=== PATIENT | female | born 1980 | race Caucasian/White ===

== ENCOUNTER 2020-10-17 14:31 | Emergency (ER) | payer MEDICARE, MEDICAID, SELFPAY ==
--- NOTE | 2020-10-17 14:39 | ED_ITS ---
HPI - General Adult General: Chief complaint: General Medical Stated complaint: PEG TUBE Time Seen by Provider: 10/17/20 14:46 History of Present Illness: HPI narrative: 40 yo [place] was displaced. Patient previously had a prolonged seizure resulting in requiring complete [facility] [facility] level of care earlier today where PEG tube was displaced. She will respond to painful stimuli but does not provide any verbal response to questions. She has been at this state for several years now. Review of Systems General: Reports: ROS unobtainable due to medical condition and ROS unobtainable due to mental status PFSH ED PFSH: Medical History (Updated 10/17/20 @ 16:05 by Scottie Khan DO) Cerebral palsy HTN (hypertension) Hypothyroidism, unspecified Physical Exam HENMT: COMMON NORMALS: normocephalic, atraumatic and hearing grossly normal bilaterally HEAD & SCALP: normocephalic and atraumatic Neck/C-Spine: COMMON NORMALS: no JVD Resp: COMMON NORMALS: normal respiratory effort, No retractions, No use of accessory muscles and clear to auscultation bilaterally AUSCULTATION: clear to auscultation bilaterally Cardio: COMMON NORMALS: no JVD, regular rate, regular rhythm and No murmurs present (Cardio) RATE: regular rate RHYTHM: regular rhythm GI: COMMON NORMALS: Soft to palpation and No hepatosplenomegaly present AUSCULTATION: Yes normoactive bowel sounds PALPATION: Yes Soft to palpation, No Tenderness to palpation present (GI), No Guarding due to palpation present (GI) and Yes No hepatosplenomegaly present Extremity: COMMON NORMALS: normal to inspection, capillary refill normal, no clubbing, cyanosis or edema, no calf tenderness and no pedal edema Skin: COMMON NORMALS: no rashes or lesions noted GENERAL SKIN EXAM: no rashes or lesions noted Course Vital Signs: Vital signs: Vital Signs Temperature 97.6 F 10/17/20 14:45 Pulse Rate 79 10/17/20 14:45 Respiratory Rate 19 H 10/17/20 14:45 Blood Pressure 102/67 10/17/20 14:45 Pulse Oximetry 99 10/17/20 14:45 MDM - General Adult MDM Narrative: Medical decision making narrative: Initially on arrival a Ceron tube placed to maintain patency. Then replaced by PEG tube patient be discharged back to the [place] [facility] placement confirmed by Gastrografin and KUB. PEG tube found Ceron tube removed and PEG tube replaced bulb inflated confirm placement with Gastrografin injection and KUB. Discharge back to the [place] [facility] routine PEG tube cares Discharge Plan Discharge Patient Disposition: Home Clinical Impression: Status post insertion of percutaneous endoscopic gastrostomy (PEG) tube, Cerebral palsy Condition: Stable Prescriptions: No Action levothyroxine 75 mcg capsule 75 mcg PO DAILY@05 RF: 0 zonisamide [Zonegran] 100 mg capsule 200 mg PO DAILY@08 RF: 0 Eldertonic 0.5-0.6-7-0.7 mg elixir 30 ml PO DAILY@08 RF: 0 gabapentin 300 mg capsule 300 mg PO BID@, RF: 0 baclofen 10 mg tablet 10 mg PO BID@, RF: 0 venlafaxine 75 mg tablet 75 mg PO DAILY@08 RF: 0 desmopressin 0.2 mg tablet 0.2 mg PO BID@, RF: 0 ondansetron HCl 4 mg tablet 4 mg PO QID PRN (Reason: Nausea And Vomiting) RF: 0 magnesium hydroxide [Milk of Magnesia] 400 mg/5 mL suspension 30 ml PO DAILY PRN (Reason: Constipation) RF: 0 bisacodyl [Dulcolax (bisacodyl)] 10 mg suppository 10 mg TN DAILY PRN (Reason: Constipation) RF: 0 levetiracetam 100 mg/mL solution 1,000 mg PO BID@,20 RF: 0 Tylenol 650mg 20 ml PO QID PRN (Reason: pain/fever) RF: 0 Fleet Enema 19-7 gram/118 mL Enema 118 ml TN DAILY PRN (Reason: Constipation) RF: 0 valproic acid 500 mg Capsule,Delayed Release(Dr/Ec) 500 mg PO TID@,, RF: 0 Biofreeze 0.2-3.5 % Gel See Rx Instructions .ROUTE .COMPLEX RF: 0 Isosource 1.5 Asaf 0.07 gram-1.5 kcal/mL Liquid See Rx Instructions .ROUTE .COMPLEX RF: 0 Discharge Orders: Discharge ED (Routine); Ordered 10/17/20 Ordered By: Scottie Khan Referrals: Michael Stokes MD [Primary Care Provider] - Discharge Diet: Usual diet Activity Restrictions/Additional Instructions: Routine PEG tube cares Coding Level of Care Code ED Preparation Department Supervisor for Chg Fwd Exam Detailed
[2020-10-17 14:45] VITALS: BP 102/67; PULSE 79; RESP 19; TEMP 36.4; O2SAT 99
--- NOTE | 2020-10-17 15:55 | XRR_ITS ---
PROCEDURE INFORMATION: Exam: XR Abdomen, 1 View Exam date and time: 10/17/2020 4:14 PM Age: 40 years old Clinical indication: Device placement; Gi device; Peg tube; Additional info: Peg tube placement - instill 10 ml gastrograggin in peg xra TECHNIQUE: Imaging protocol: XR of the abdomen. Views: Frontal supine view of the abdomen. 1 View. Total images: 1 COMPARISON: CR XR KUB [id number] 10/06/2017 10:52 AM FINDINGS: Tubes, catheters and devices: Gastrografin injected through the PEG tube within the distal gastric lumen and proximal duodenum. No visible extravasation. Gastrointestinal tract: Heavy fecal residue consistent with constipation. Nonobstructive bowel pattern. No visible evidence of significant adynamic or reactive ileus. Bones/joints: Unremarkable. XR/XR KUB portable [id number] IMPRESSION: PEG tube in place with contrast within the distal gastric lumen and proximal duodenum.
[2020-10-17] MEDS: diatrizoate meglumine 120 mL Sol 10 ML XX (16:14)
[2020-10-17 16:19] VITALS: BP 101/68; PULSE 76; RESP 18; O2SAT 99
[2020-10-17 17:14] VITALS: BP 94/63; PULSE 65; RESP 17; O2SAT 100
== END 2020-10-17 17:32 | disposition home or self-care (01) ==
PROVIDERS: Emergency Provider Family Medicine; PCP Internal Medicine
DX: Z93.1 Gastrostomy status (principal); G80.9 Cerebral palsy, unspecified; I10 Essential (primary) hypertension
CPT/HCPCS: 12345; 74018; 99281; 99283; Q9963

== ENCOUNTER 2021-06-26 21:56 | Emergency (ER) | payer MEDICARE, MEDICAID, SELFPAY ==
--- NOTE | 2021-06-26 21:57 | ED_ITS ---
HPI - General Adult General: Chief complaint: Abdominal Pain Stated complaint: FEEDING TUBE ISSUE Time Seen by Provider: 06/26/21 21:57 History of Present Illness: HPI narrative: 40-year-old female brought in from [facility] and has a dislodgment of a feeding tube. They were unable to replace it at the intermediate. Patient appears well. Patient appears no acute distress. Review of Systems General: Reports: 10 or more systems reviewed and unremarkable except in HPI and below GI: Reports: other (G-tube displacement) [facility] ED PFSH: Medical History (Updated 06/26/21 @ 22:43 by EDOUARD Maravilla) Cerebral palsy HTN (hypertension) Hypothyroidism, unspecified Physical Exam Const: COMMON NORMALS: no acute distress GENERAL APPEARANCE: cooperative HENMT: COMMON NORMALS: normocephalic and Normal external nose present HEAD & SCALP: normal to inspection and normocephalic NOSE: Normal external nose present Eye: GENERAL EYE: appearance normal, both eyes and all related structures Neck/C-Spine: COMMON NORMALS: full ROM Lymph: LYMPHATIC: no lymphadenopathy noted Chest: COMMONS NORMALS: normal inspection of the chest Resp: COMMON NORMALS: normal respiratory effort EFFORT & INSPECTION: Yes able to speak in complete sentences Cardio: COMMON NORMALS: regular rate and regular rhythm RATE: regular rate RHYTHM: regular rhythm GI: COMMON NORMALS: Soft to palpation PALPATION: Yes Soft to palpation and Yes Other GI palpation findings present OTHER: Feeding tube site appears healthy without any signs of redness or induration surrounding the tissue. Back/Pelvis: COMMON NORMALS: thoracic and lumbar spine normal to inspection Extremity: COMMON NORMALS: normal to inspection Neuro: COMMON NORMALS: moves all extremities Psych: COMMON NORMALS: mental status grossly normal and cooperative Skin: COMMON NORMALS: no rashes or lesions noted GENERAL SKIN EXAM: no rashes or lesions noted Procedures Feeding Tube Replacement Type of Tube: gastrostomy Insertion Site Prior to Procedure: clean Tube Used for Reinsertion: Ceron [place]ankan Tube Size (F): 14 Balloon size (mL): 10 Verification of Placement: auscultation Tube Secured by: tape/dressing Patient Tolerated Procedure: well Additional Comments: Attempted to 18 Sri Lankan G-tube was unable to place. 14 [place]ankan Ceron was then placed. Course Vital Signs: Vital signs: Vital Signs Temperature 98.8 F 09/27/21 21:59 Pulse Rate 91 06/26/21 22:48 Respiratory Rate 16 06/26/21 22:48 Blood Pressure 111/71 06/26/21 21:59 Pulse Oximetry 93 06/26/21 22:48 MDM - General Adult MDM Narrative: Medical decision making narrative: Patient was sent to the ER for concerns of inability to place G-tube. On exam patient appears well. Abdomen soft nontender. Skin is warm and dry. G-tube site was pink without any signs of significant redness or induration. Was unable to insert a 18 Sri [place]ankan gastric tube due to large size. Placed a 14 [place]ankan Ceron catheter without any difficulties. Patient will need to follow-up with surgeon for replacement of G- tube. Patient was returned to the intermediate. Discharge Plan Discharge Patient Disposition: Home Clinical Impression: Gastrostomy tube dysfunction Condition: Stable Prescriptions: No Action zonisamide [Zonegran] 100 mg capsule 200 mg PO DAILY@08 RF: 0 Eldertonic 0.5-0.6-7-0.7 mg elixir 30 ml PO DAILY@08 RF: 0 gabapentin 300 mg capsule 300 mg PO BID@, RF: 0 baclofen 10 mg tablet 10 mg PO BID@, RF: 0 venlafaxine 75 mg tablet 75 mg PO DAILY@08 RF: 0 desmopressin 0.2 mg tablet 0.2 mg PO BID@, RF: 0 ondansetron HCl 4 mg tablet 4 mg PO QID PRN (Reason: Nausea And Vomiting) RF: 0 magnesium hydroxide [Milk of Magnesia] 400 mg/5 mL suspension 30 ml PO DAILY PRN (Reason: Constipation) RF: 0 bisacodyl [Dulcolax (bisacodyl)] 10 mg suppository 10 mg ME DAILY PRN (Reason: Constipation) RF: 0 levothyroxine 100 mcg/mL solution 50 mcg PO DAILY Qty: 30 RF: 0 levetiracetam 100 mg/mL solution 1,000 mg PO BID@, RF: 0 Tylenol 650mg 20 ml PO QID PRN (Reason: pain/fever) RF: 0 Fleet Enema 19-7 gram/118 mL Enema 118 ml ME DAILY PRN (Reason: Constipation) RF: 0 valproic acid 500 mg Capsule,Delayed Release(Dr/Ec) 500 mg PO TID@08,14,20 RF: 0 Biofreeze 0.2-3.5 % Gel See Rx Instructions .ROUTE .COMPLEX RF: 0 Isosource 1.5 Asaf 0.07 gram-1.5 kcal/mL Liquid See Rx Instructions .ROUTE .COMPLEX RF: 0 Discharge Orders: Discharge ED (Routine); Ordered 06/26/21 Ordered By: Saul Fonseca Referrals: Michael Stokes MD [Primary Care Provider] - Discharge Diet: Usual diet Discharge Activity: Increase activity as tolerated Patient Instructions: Opioid Safety Activity Restrictions/Additional Instructions: Follow-up with surgeon for replacement of G-tube. Use Ceron catheter for feedings until G-tube may be replaced. Return to the ER as needed for signs of infection such as high fever or new concerns. Coding Level of Care Code ED Drug Safety Associate for Irene Fwevan Exam Comprehensive
[2021-06-26 21:59] VITALS: BP 111/71; PULSE 89; RESP 16; TEMP 37.1; O2SAT 93
[2021-06-26 22:48] VITALS: PULSE 91; RESP 16; O2SAT 93
== END 2021-06-27 00:10 | disposition home or self-care (01) ==
LOC: ER 06-27 03:52
PROVIDERS: Emergency Provider Nurse Practitioner Family; PCP Internal Medicine
DX: K94.29 Other complications of gastrostomy (principal); G80.9 Cerebral palsy, unspecified; I10 Essential (primary) hypertension
CPT/HCPCS: 43762; 99283

== ENCOUNTER → 2021-07-05 08:01 | Day surgery (SDC) | payer MEDICARE, MEDICAID, SELFPAY ==
--- NOTE | 2021-07-05 08:24 | PM.ACPR ---
Procedure/Consent Time out: Time Out Performed: Yes Consent: Consent for Procedure: Consent obtained from other (indicate) (POA) Procedure Narrative: Preoperative diagnosis: Cerebral palsy with 14 Marshallese Ceron catheter Postop diagnosis: Same Procedure: Exchange of gastrostomy tube to 18 Marshallese tube Anesthesia: None Surgeon: Michael Description of procedure: After consent was obtained the balloon on the existing 14 Marshallese Ceron catheter was deflated and removed intact. An 18 Marshallese gastrostomy tube was introduced with some pressure since the gastrostomy was smaller, there was drainage of gastric contents. The balloon was inflated with 7 cc of saline and dressings were applied. Patient tolerated the procedure well. Acute Procedures Epistaxis Control: Time out performed: Yes
[2021-07-05 08:25] VITALS: BP 86/64; PULSE 80; RESP 18; TEMP 36.2; O2SAT 97
== END ==
PROVIDERS: PCP Internal Medicine; Visit Provider Surgery
DX: Z46.89 Encounter for fitting and adjustment of other specified devices (principal); G80.9 Cerebral palsy, unspecified
CPT/HCPCS: 43762; B4087

== ENCOUNTER 2021-09-11 18:54 | Outpatient (CLI) | payer MEDICARE, MEDICAID, SELFPAY ==
[2021-09-11 19:07] LABS: Hematocrit 42.6 % (37.0-47.0); Mean Corpuscular HGB Conc 30.5 g/dL (30.0-36.0); Mean Corpuscular Hemoglobin 32.3 pg (28.0-34.0); Mean Corpuscular Volume 105.7 fl (81-99); Platelet Count 92 10^3/cmm (130-400); Red Blood Count 4.03 10^6/uL (4.1-5.3); Red Cell Distribution Width 14.6 % (12.1-15.1); White Blood Count 6.2 10^3/uL (4.0-10.0)
[2021-09-11 19:49] LABS: Absolute Neutrophil 3.8 10^3/cmm (1.4-6.5); Absolute Segmented Neutrophil 3.5 10/cmm (1.6-7.1); Band Neutrophils Absolute 0.3 10^3/cmm (0.0-1.2); Lymphocytes 32 %; Lymphocytes Absolute 2.2 10^3/cmm (1.2-3.4); Monocytes Absolute 0.2 10^3/cmm (0.1-0.6); Platelet Estimate Decreased (Normal); Segmented Neutrophils 56 %; Total Cells Counted 100 (0-100)
[2021-09-11 19:49] LABS: Alanine Aminotransferase 26 U/L (0-33); Albumin Level 3.2 g/dL (3.5-5.2); Alkaline Phosphatase 94 IU/L (35-105); Anion Gap 12.4 (5-19); Aspartate Amino Transferase 24 U/L (0-32); Blood Urea Nitrogen 53 mg/dL (6-20); Calcium 8.5 mg/dL (8.5-10.5); Carbon Dioxide 29 mmol/L (22-29); Chloride 115 mmol/L (98-107); Globulin 3.1 g/dL (1.3-4.6); Glomerular Filtration Rate 136.6 mL/min (90-130); Glucose 52 mg/dL (65-115); Osmolality Calculated 324 mOsm/kg (285-295); Potassium 5.4 mmol/L (3.5-5.1); Sodium 151 mmol/L (136-145); Total Bilirubin 0.2 mg/dL (0.15-1.2); Total Protein 6.3 g/dL (6.6-8.7)
[2021-09-11 19:50] LABS: Macrocytosis 1+
== END 2021-09-11 18:55 | disposition home or self-care (01) ==
PROVIDERS: PCP Internal Medicine; Visit Provider Internal Medicine
DX: R41.82 Altered mental status, unspecified (principal)
CPT/HCPCS: 80053; 85007; 85027

== ENCOUNTER 2021-09-16 15:34 | Inpatient (IN) | payer MEDICARE, MEDICAID, SELFPAY ==
[2021-09-16] VITALS (11 sets, daily range): BP systolic 71–120; BP diastolic 52–71; PULSE 92–108; RESP 15–25; TEMP 36.8–37.3; O2SAT 93–100; BMI 19.5
--- NOTE | 2021-09-16 16:01 | XRR_ITS ---
PROCEDURE INFORMATION: Exam: XR Chest Exam date and time: 09/16/2021 4:01 PM Age: 41 years old Clinical indication: Cough and dyspnea; Additional info: Dyspnea/cough TECHNIQUE: Imaging protocol: XR of the chest. Views: 1 view. COMPARISON: CR Chest 1 [place] [id number] 12/27/2018 2:53 PM FINDINGS: Lungs: Unremarkable. No consolidation. Pleural spaces: Unremarkable. No pleural effusion. No pneumothorax. Heart/Mediastinum: Unremarkable. No cardiomegaly. Bones/joints: Unremarkable. XR/XR chest 1V portable [id number] IMPRESSION: No acute findings.
--- NOTE | 2021-09-16 16:03 | W.ED.FEVER ---
Documented by User: Scottie Khan DO 09/20/21 08:43 HPI - Fever General: Chief Complaint: Fever Stated Complaint: LETHARGIC/ HEADACHE Time Seen by Provider: 09/16/21 15:38 History of Present Illness: HPI Narrative: 41-year-old female resident of a care home. She is previously had electrical disability due to cerebral palsy then had episode of status epilepticus that left her with significant disability over the course of a couple of years she was able to regain some verbal function but she is lost all ability to maintain her own ADLs. Patient was brought to the ER today with complaint of fever. On arrival here she is responsive she answers a few simple questions. She states she has a headache does not give any other symptoms at this time. She is mildly tender with palpation of her abdomen. MD elicited complaint: malaise Pertinent past history: other (Significant functional loss due to status epilepticus.) Onset (ago): unknown Exacerbating factors: nothing Relieving factors: nothing Associated symptoms: Reports abdominal pain and chills; Deny flank pain, chest pain, confusion, cough, diarrhea, dysuria, extremity pain, headache(s), myalgias, nasal congestion, nausea, night sweats, rash, rhinorrhea, short of breath, sinus pain, stiffness, sore throat or vomiting Treatments prior to arrival fever: none Review of Systems Const: Reports: chills; Denies: night sweats ENMT: Denies: nasal congestion or sinus pain Card: Denies: chest pain Resp: Denies: dyspnea, productive cough or non-productive cough GI: Reports: abdominal pain; Denies: nausea, vomiting or diarrhea : Denies: flank pain or dysuria Musc: Denies: extremity pain Skin/Breast: Denies: rash or pruritus Neuro: Denies: headache(s) or confusion PFS ED PFSH: Medical History (Updated 09/18/21 @ 13:25 by Kalpana Sultana MD) Cerebral palsy HTN (hypertension) Hypothyroidism, unspecified Physical Exam Const: ORIENTATION/CONSCIOUSNESS: Yes awake HENMT: COMMON NORMALS: atraumatic HEAD & SCALP: atraumatic OTHER: Poor dentition, significant erosion of teeth. Neck/C-Spine: COMMON NORMALS: no JVD Resp: COMMON NORMALS: normal respiratory effort, No retractions, No use of accessory muscles and clear to auscultation bilaterally AUSCULTATION: clear to auscultation bilaterally Cardio: COMMON NORMALS: no JVD, regular rate, regular rhythm and No murmurs present (Cardio) RATE: regular rate RHYTHM: regular rhythm GI: COMMON NORMALS: Soft to palpation and No hepatosplenomegaly present AUSCULTATION: Yes normoactive bowel sounds PALPATION: Yes Soft to palpation, No Tenderness to palpation present (GI), No Guarding due to palpation present (GI) and Yes No hepatosplenomegaly present Extremity: COMMON NORMALS: normal to inspection, capillary refill normal, no clubbing, cyanosis or edema, no calf tenderness and no pedal edema Skin: COMMON NORMALS: no rashes or lesions noted GENERAL SKIN EXAM: no rashes or lesions noted Course Vital Signs: Vital signs: Vital Signs Temperature 98.2 F 09/20/21 07:36 Pulse Rate 69 09/20/21 07:36 Respiratory Rate 16 09/20/21 07:36 Blood Pressure 100/64 09/20/21 07:36 Pulse Oximetry 90 09/20/21 07:36 MDM - Fever MDM Narrative: Medical decision making narrative: Care turned over to Dr. Stark at change of see his note from diagnosis and disposition. Lab Data: Labs: Lab Results 09/16/21 09/16/21 09/16/21 16:30 16:30 16:30 WBC 15.9 10^3/uL H 10 ^3/uL (4.0-10.0) RBC 4.03 10^6/uL L 10 ^6/uL (4.1-5.3) Hgb 13.1 g/dL g/dL (11.5-15.3) Hct 40.0 % % (37.0-47.0) MCV 99.3 fl H fl (81-99) MCH 32.5 pg pg (28.0-34.0) MCHC 32.8 g/dL g/dL (30.0-36.0) RDW 15.0 % % (12.1-15.1) Plt Count 89 10^3/cmm L 10^ 3/cmm (130-400) MPV 11.8 fL H fL (7.4-10.4) Neut % (Auto) 72.0 % % Lymph % (Auto) 12.8 % % Nicholas % (Auto) 13.8 % % Eos % (Auto) 0.3 % % Baso % (Auto) 0.3 % % Neut # (Auto) 11.47 10^3/uL H 1 0^3/uL (1.8-7.7) Lymph # (Auto) 2.0 10^3/uL 10^3/ uL (0.8-4.8) Nicholas # (Auto) 2.2 10^3/uL H 10^ 3/uL (0.2-0.9) Eos # (Auto) 0.0 10^3/uL 10^3/ uL (0.0-0.8) Baso # (Auto) 0.1 10^3/uL 10^3/ uL (0.0-0.1) Nucleated RBC % (a uto) 0.3 % % Nucleated RBCs # 0.0 /100WBC /100W BC Specimen Type Arterial Sample Site Radial, right ABG pH 7.46 H (7.35-7.45) ABG pCO2 35.6 mmHg mmHg (35-45) ABG pO2 77.3 mmHg L mmHg (80.0-100.0) ABG HCO3 25.0 mmol/L mmol/ L (22-26) ABG O2 Saturation 97.0 ABG Base Excess 1.4 mmol/L mmol/L (-2.0-2.0) Melchor Test Pos A-a O2 Gradient 3.7 mmHg L mmHg (5-10) Hematocrit 40.0 % % (37-47) Hgb O2 Saturation 94.6 % L % (95-100) Carboxyhemoglobin 1.2 %THgb %THgb (0.4-20.1) Methemoglobin 1.2 % % (0.4-1.5) Total Hemoglobin 13.1 g/dL g/dL (12-16) Sodium 149 mmol/L H mmol /L 151.0 mmol/L H mm ol/L (136-145) (131-143) Potassium 5.0 mmol/L mmol/L 4.8 mmol/L mmol/L (3.5-5.1) (3.5-5.0) Glucose 85 mg/dL mg/dL 90.0 mg/dL mg/dL (65-115) (70-115) Ionized Calcium 1.2 mmol/L mmol/L (1.1-1.4) O2 Delivery Device None FiO2 21.0 % % Registrar Nurses' Registry ID Rieri Chloride 113 mmol/L H mmol /L (98-107) Carbon Dioxide 21 mmol/L L mmol/ L (22-29) Anion Gap 20.0 H (5-19) BUN 34 mg/dL H mg/dL (6-20) Creatinine 1.0 mg/dL H mg/dL (0.5-0.9) GFR Calculation 61.4 mL/min L mL/ min (90-130) Calculated Osmolal ity 315 mOsm/kg H mOs m/kg (285-295) Lactic Acid Calcium 8.3 mg/dL L mg/dL (8.5-10.5) Total Bilirubin 0.6 mg/dL mg/dL (0.15-1.2) AST 32 U/L U/L (0-32) ALT 23 U/L U/L (0-33) Alkaline Phosphata se 108 IU/L H IU/L (35-105) Total Protein 6.6 g/dL g/dL (6.6-8.7) Albumin 2.8 g/dL L g/dL (3.5-5.2) Globulin 3.8 g/dL g/dL (1.3-4.6) Urine Color Urine Appearance Urine pH Ur Specific Gravit y Urine Protein Urine Glucose (UA) Urine Ketones Urine Blood Urine Nitrate Urine Bilirubin Prot Sulfosalicyli c Acd Urine Urobilinogen Ur Leukocyte Radha ase Urine RBC Urine WBC Ur Squamous Epith Cells Amorphous Sediment Urine Bacteria 09/16/21 09/16/21 16:30 18:07 WBC RBC Hgb Hct MCV MCH MCHC RDW Plt Count MPV Neut % (Auto) Lymph % (Auto) Nicholas % (Auto) Eos % (Auto) Baso % (Auto) Neut # (Auto) Lymph # (Auto) Nicholas # (Auto) Eos # (Auto) Baso # (Auto) Nucleated RBC % (a uto) Nucleated RBCs # Specimen Type Sample Site ABG pH ABG pCO2 ABG pO2 ABG HCO3 ABG O2 Saturation ABG Base Excess Melchor Test A-a O2 Gradient Hematocrit Hgb O2 Saturation Carboxyhemoglobin Methemoglobin Total Hemoglobin Sodium Potassium Glucose Ionized Calcium O2 Delivery Device FiO2 Registrar Nurses' Registry ID Chloride Carbon Dioxide Anion Gap BUN Creatinine GFR Calculation Calculated Osmolal ity Lactic Acid 1.1 mmol/L mmol/L (0.5-2.2) Calcium Total Bilirubin AST ALT Alkaline Phosphata se Total Protein Albumin Globulin Urine Color Yellow (Yellow) Urine Appearance Sl cloudy A (CLEAR) Urine pH 9 H (5-7) Ur Specific Gravit y 1.015 (1.005-1.030) Urine Protein 2+ H (Negative) Urine Glucose (UA) Norm (Normal) Urine Ketones Negative (Negative) Urine Blood 3+ H (Negative) Urine Nitrate Negative (Negative) Urine Bilirubin Neg (Negative) Prot Sulfosalicyli c Acd Positive (Negative) Urine Urobilinogen Norm mg/dL mg/dL (Negative) Ur Leukocyte Radha ase 2+ H (Negative) Urine RBC >100 /hpf H /hpf (0-2) Urine WBC Too numerous to c nt /hpf H /hpf (0-5) Ur Squamous Epith Cells 0-4 /hpf H /hpf (0-5) Amorphous Sediment Not Reportable Urine Bacteria 4+ /hpf H /hpf (NONE) Discharge Plan Discharge Admit Provider: Mandy Means Coding Level of Care Code ED Telephone Lineman for Chg Fwd Exam Comprehensive Documented by User: Tae Stark DO 09/16/21 21:11 HPI - Fever General: Chief Complaint: Fever Stated Complaint: LETHARGIC/ HEADACHE Time Seen by Provider: 09/16/21 15:38 PFSH ED PFSH: Medical History (Updated 09/18/21 @ 13:25 by Kalpana Sultana MD) Cerebral palsy HTN (hypertension) Hypothyroidism, unspecified Course Consultations: Consultation #1: vicky Time: 20:42 Vital Signs: Vital signs: Vital Signs Temperature 98.2 F 09/20/21 07:36 Pulse Rate 69 09/20/21 07:36 Respiratory Rate 16 09/20/21 07:36 Blood Pressure 100/64 09/20/21 07:36 Pulse Oximetry 90 09/20/21 07:36 MDM - Fever MDM Narrative: Medical decision making narrative: 41-year-old female checked out to me at shift change by Dr. Khan. This lady has had a fever, and evidence of urinary tract infection. White blood cell count is 16. CT shows evidence of urinary tract infection possibly pyelonephritis. BUN is 34 creatinine is 1. Initially, she was hypotensive, she has had 3 L of fluid with a MAP of 65 now. Heart rates 99. Sats are 97% we will place her on low-dose Levophed for pressure support Lab Data: Labs: Lab Results 09/16/21 09/16/21 09/16/21 16:30 16:30 16:30 WBC 15.9 10^3/uL H 10 ^3/uL (4.0-10.0) RBC 4.03 10^6/uL L 10 ^6/uL (4.1-5.3) Hgb 13.1 g/dL g/dL (11.5-15.3) Hct 40.0 % % (37.0-47.0) MCV 99.3 fl H fl (81-99) MCH 32.5 pg pg (28.0-34.0) MCHC 32.8 g/dL g/dL (30.0-36.0) RDW 15.0 % % (12.1-15.1) Plt Count 89 10^3/cmm L 10^ 3/cmm (130-400) MPV 11.8 fL H fL (7.4-10.4) Neut % (Auto) 72.0 % % Lymph % (Auto) 12.8 % % Nicholas % (Auto) 13.8 % % Eos % (Auto) 0.3 % % Baso % (Auto) 0.3 % % Neut # (Auto) 11.47 10^3/uL H 1 0^3/uL (1.8-7.7) Lymph # (Auto) 2.0 10^3/uL 10^3/ uL (0.8-4.8) Nicholas # (Auto) 2.2 10^3/uL H 10^ 3/uL (0.2-0.9) Eos # (Auto) 0.0 10^3/uL 10^3/ uL (0.0-0.8) Baso # (Auto) 0.1 10^3/uL 10^3/ uL (0.0-0.1) Nucleated RBC % (a uto) 0.3 % % Nucleated RBCs # 0.0 /100WBC /100W BC Specimen Type Arterial Sample Site Radial, right ABG pH 7.46 H (7.35-7.45) ABG pCO2 35.6 mmHg mmHg (35-45) ABG pO2 77.3 mmHg L mmHg (80.0-100.0) ABG HCO3 25.0 mmol/L mmol/ L (22-26) ABG O2 Saturation 97.0 ABG Base Excess 1.4 mmol/L mmol/L (-2.0-2.0) Melchor Test Pos A-a O2 Gradient 3.7 mmHg L mmHg (5-10) Hematocrit 40.0 % % (37-47) Hgb O2 Saturation 94.6 % L % (95-100) Carboxyhemoglobin 1.2 %THgb %THgb (0.4-20.1) Methemoglobin 1.2 % % (0.4-1.5) Total Hemoglobin 13.1 g/dL g/dL (12-16) Sodium 149 mmol/L H mmol /L 151.0 mmol/L H mm ol/L (136-145) (131-143) Potassium 5.0 mmol/L mmol/L 4.8 mmol/L mmol/L (3.5-5.1) (3.5-5.0) Glucose 85 mg/dL mg/dL 90.0 mg/dL mg/dL (65-115) (70-115) Ionized Calcium 1.2 mmol/L mmol/L (1.1-1.4) O2 Delivery Device None FiO2 21.0 % % Registrar Nurses' Registry ID Rieri Chloride 113 mmol/L H mmol /L (98-107) Carbon Dioxide 21 mmol/L L mmol/ L (22-29) Anion Gap 20.0 H (5-19) BUN 34 mg/dL H mg/dL (6-20) Creatinine 1.0 mg/dL H mg/dL (0.5-0.9) GFR Calculation 61.4 mL/min L mL/ min (90-130) Calculated Osmolal ity 315 mOsm/kg H mOs m/kg (285-295) Lactic Acid Calcium 8.3 mg/dL L mg/dL (8.5-10.5) Total Bilirubin 0.6 mg/dL mg/dL (0.15-1.2) AST 32 U/L U/L (0-32) ALT 23 U/L U/L (0-33) Alkaline Phosphata se 108 IU/L H IU/L (35-105) Total Protein 6.6 g/dL g/dL (6.6-8.7) Albumin 2.8 g/dL L g/dL (3.5-5.2) Globulin 3.8 g/dL g/dL (1.3-4.6) Urine Color Urine Appearance Urine pH Ur Specific Gravit y Urine Protein Urine Glucose (UA) Urine Ketones Urine Blood Urine Nitrate Urine Bilirubin Prot Sulfosalicyli c Acd Urine Urobilinogen Ur Leukocyte Radha ase Urine RBC Urine WBC Ur Squamous Epith Cells Amorphous Sediment Urine Bacteria 09/16/21 09/16/21 16:30 18:07 WBC RBC Hgb Hct MCV MCH MCHC RDW Plt Count MPV Neut % (Auto) Lymph % (Auto) Nicholas % (Auto) Eos % (Auto) Baso % (Auto) Neut # (Auto) Lymph # (Auto) Nicholas # (Auto) Eos # (Auto) Baso # (Auto) Nucleated RBC % (a uto) Nucleated RBCs # Specimen Type Sample Site ABG pH ABG pCO2 ABG pO2 ABG HCO3 ABG O2 Saturation ABG Base Excess Melchor Test A-a O2 Gradient Hematocrit Hgb O2 Saturation Carboxyhemoglobin Methemoglobin Total Hemoglobin Sodium Potassium Glucose Ionized Calcium O2 Delivery Device FiO2 Registrar Nurses' Registry ID Chloride Carbon Dioxide Anion Gap BUN Creatinine GFR Calculation Calculated Osmolal ity Lactic Acid 1.1 mmol/L mmol/L (0.5-2.2) Calcium Total Bilirubin AST ALT Alkaline Phosphata se Total Protein Albumin Globulin Urine Color Yellow (Yellow) Urine Appearance Sl cloudy A (CLEAR) Urine pH 9 H (5-7) Ur Specific Gravit y 1.015 (1.005-1.030) Urine Protein 2+ H (Negative) Urine Glucose (UA) Norm (Normal) Urine Ketones Negative (Negative) Urine Blood 3+ H (Negative) Urine Nitrate Negative (Negative) Urine Bilirubin Neg (Negative) Prot Sulfosalicyli c Acd Positive (Negative) Urine Urobilinogen Norm mg/dL mg/dL (Negative) Ur Leukocyte Radha ase 2+ H (Negative) Urine RBC >100 /hpf H /hpf (0-2) Urine WBC Too numerous to c nt /hpf H /hpf (0-5) Ur Squamous Epith Cells 0-4 /hpf H /hpf (0-5) Amorphous Sediment Not Reportable Urine Bacteria 4+ /hpf H /hpf (NONE) Discharge Plan Discharge Admit Provider: Mandy Means Coding Level of Care Code ED Telephone Lineman for Chg Fwd Exam Comprehensive
--- NOTE | 2021-09-16 16:07 | CTR_ITS ---
PROCEDURE INFORMATION: Exam: CT Abdomen And Pelvis With Contrast Exam date and time: 09/16/2021 4:07 PM Age: 41 years old Clinical indication: Abdominal pain; Generalized; Prior surgery; Additional info: Abd pain TECHNIQUE: Imaging protocol: Computed tomography of the abdomen and pelvis with contrast. Radiation optimization: All CT scans at this facility use at least one of these dose optimization techniques: automated exposure control; mA and/or kV adjustment per patient size (includes targeted exams where dose is matched to clinical indication); or iterative reconstruction. Contrast material: OMNI 300; Contrast volume: 75 ml; Contrast route: INTRAVENOUS (IV); COMPARISON: CT abdomen pelvis wo con [id number] 10/06/2015 4:04 AM RADIATION DOSE METRICS: Total DLP (mGy-cm): 3096.91 FINDINGS: Tubes, catheters and devices: Percutaneous gastric tube seen with tip in the stomach. Liver: Normal. No mass. Gallbladder and bile ducts: Cholelithiasis. Pancreas: Normal. No ductal dilation. Spleen: Normal. No splenomegaly. Adrenal glands: Normal. No mass. Kidneys and ureters: Several left kidney renal pelvis and calyceal stones without hydronephrosis. Mild right hydronephrosis and hydroureter with enhancement of the ureteral wall suggestive of underlying infection. Stomach and bowel: Constipation. Appendix: No evidence of appendicitis. Intraperitoneal space: Unremarkable. No free air. No significant fluid collection. Vasculature: Unremarkable. No abdominal aortic aneurysm. Lymph nodes: Unremarkable. No enlarged lymph nodes. Urinary bladder: Diffuse urinary bladder wall thickening suggestive of a cystitis. Reproductive: Unremarkable as visualized. Bones/joints: Unremarkable. No acute fracture. Soft tissues: Unremarkable. CT/CT abdomen pelvis w con* [id number] IMPRESSION: 1. Diffuse urinary bladder wall thickening suggestive of a cystitis. 2. Several left kidney renal pelvis and calyceal stones without hydronephrosis. 3. Mild right hydronephrosis and hydroureter with enhancement of the ureteral wall suggestive of underlying infection. 4. Percutaneous gastric tube seen with tip in the stomach. 5. Cholelithiasis. 6. Constipation.
[2021-09-16 16:37] LABS: ABG PCO2 35.6 mmHg (35-45); ABG PH Result 7.46 (7.35-7.45); Alveolar-Arterial Oxygen Gradi 3.7 mmHg (5-10); Base Excess ABG 1.4 mmol/L (-2.0-2.0); Blood Gas Allen Test Pos; Blood Gas Sample Site Radial, right; Blood Gas Sample Type Arterial; Carboxyhemoglobin 1.2 %THgb (0.4-20.1); HGB O2 Sat 94.6 % (95-100); Ionized Calcium Level - ABG 1.2 mmol/L (1.1-1.4); Methemoglobin 1.2 % (0.4-1.5); PO2 ABG 77.3 mmHg (80.0-100.0); Potassium Level - ABG 4.8 mmol/L (3.5-5.0); Total Hemoglobin 13.1 g/dL (12-16)
[2021-09-16 16:40] LABS: Basophils # 0.1 10^3/uL (0.0-0.1); Basophils % 0.3 %; Eosinophils % 0.3 %; Hemoglobin 13.1 g/dL (11.5-15.3); Lymphocytes % 12.8 %; Mean Corpuscular HGB Conc 32.8 g/dL (30.0-36.0); Mean Corpuscular Hemoglobin 32.5 pg (28.0-34.0); Mean Corpuscular Volume 99.3 fl (81-99); Mean Platelet Volume 11.8 fL (7.4-10.4); Monocytes # 2.2 10^3/uL (0.2-0.9); Monocytes % 13.8 %; Neutrophils # 11.47 10^3/uL (1.8-7.7); Nucleated Red Blood Cells % 0.3 %; Platelet Count 89 10^3/cmm (130-400); Red Blood Count 4.03 10^6/uL (4.1-5.3); White Blood Count 15.9 10^3/uL (4.0-10.0)
[2021-09-16 16:58] LABS: Alanine Aminotransferase 23 U/L (0-33); Albumin Level 2.8 g/dL (3.5-5.2); Alkaline Phosphatase 108 IU/L (35-105); Aspartate Amino Transferase 32 U/L (0-32); Blood Urea Nitrogen 34 mg/dL (6-20); Calcium 8.3 mg/dL (8.5-10.5); Carbon Dioxide 21 mmol/L (22-29); Chloride 113 mmol/L (98-107); Globulin 3.8 g/dL (1.3-4.6); Glomerular Filtration Rate 61.4 mL/min (90-130); Glucose 85 mg/dL (65-115); Lactic Sepsis W/Reflex 1.1 mmol/L (0.5-2.2); Osmolality Calculated 315 mOsm/kg (285-295); Sodium 149 mmol/L (136-145); Total Bilirubin 0.6 mg/dL (0.15-1.2); Total Protein 6.6 g/dL (6.6-8.7)
[2021-09-16] MEDS: iohexol 300 mg/mL 100 mL Btl IV (17:34)
[2021-09-16] MEDS: sodium chloride 0.9% 1,000 ML 999 ML IV ×2 (18:28→18:30)
[2021-09-16] MEDS: cefTRIAXone 1,000 MG in sodium chloride 0.9% (plus) 50 ML 100 MG IV (18:32)
[2021-09-16 19:06] LABS: Urine Color Yellow (Yellow)
[2021-09-16 19:07] LABS: Add Urine Microscopic? YES; Bilirubin Urine Neg (Negative); Blood Urine 3+ (Negative); Glucose Urine UA Norm (Normal); Ketones Urine Negative (Negative); Leukocyte Esterase Urine 2+ (Negative); Nitrate Urine Negative (Negative); Protein Urine 2+ (Negative); Specific Gravity, Urine 1.015 (1.005-1.030); Sulfosalicylic Acid Urine Positive (Negative); Urobilinogen Urine Norm (Negative); pH Urine 9 (5-7)
[2021-09-16 19:09] LABS: Add Urine Culture? Yes; Bacteria Urine 4+ /hpf; RBC Urine >100 /hpf (0-2); Squamous Epithelial Cell Urine 0-4 /hpf (0-5); WBC Urine TOO NUMEROUS TO CNT /hpf (0-5)
--- NOTE | 2021-09-16 19:30 | PC.NURSE ---
received report. patient [facility] resident brought in for fever and headache. She was found to be hypotensive, BP 70's systolic. Has been given NS x 2 bolus. BP in 80's systolic. she has been found to have UTI. Has been treated with Rocephin.
[2021-09-16] MEDS: sodium chloride 0.9% 1,496.85 ML 1496.85 ML IV (19:35)
--- NOTE | 2021-09-16 23:03 | PM.HP ---
Providers/Chief Complaint Admitting Physician: Mandy Means MD Primary Care Provider: Michael Stokes MD Chief Complaint: LETHARGIC/ HEADACHE History of Present Illness Adilene Cordova is a 41 year old female resident at [facility], cerebral palsy with extensive contractures. Over the past few days she was noted to have soft BP at [place], thought to be dehydrated initially. Today she spiked a fever >101.6F at the facility and was hypotensive in the 70s. Rapid Covid AG negative. History obtained by talking to nurse at [facility], patient unable to participate, says yes to all questions. At a baseline able to speak few words. No h/o cough, dyspnea, has been on RA, no nausea, vomiting or diarrhea. She is on tube feeds via PEG, intermittently takes some foods for comfort. No c/o dysuria. On labs today, notes to have leukocytosis of 15, hypotensive with SBP 70s, currently received 3L fluids. vaccinated for covid 19. Review of Systems General: Reports: ROS unobtainable due to medical condition Medications/Allergies Home Medications Medication Instructions Recorded Confirmed Last Taken Type B1 0.5 mg-B2 0.6 mg-B3 7 mg-B6 0.7 30 ml PO DAILY@01/13/20 09/11/21 07/04/21 History [id number] oral elixir baclofen 10 mg tablet 10 mg PO BID@01/13/20 09/11/21 07/04/21 History bisacodyl 10 mg rectal suppository 10 mg CA DAILY PRN 01/13/20 09/11/21 07/04/21 History desmopressin 0.2 mg tablet 0.2 mg PO BID@01/13/20 09/11/21 07/04/21 History gabapentin 300 mg capsule 300 mg PO BID@01/13/20 09/11/21 07/04/21 History magnesium hydroxide 400 mg/5 mL 30 ml PO DAILY PRN ml 01/13/20 09/11/21 07/04/21 History oral suspension ondansetron HCl 4 mg tablet 4 mg PO QID PRN 01/13/20 09/11/21 07/04/21 History venlafaxine 75 mg tablet 75 mg PO DAILY@08 01/13/20 09/11/2107/04/21 History zonisamide 100 mg capsule 200 mg PO DAILY@08 cap 01/13/20 09/11/21 07/04/21 History Tylenol 650mg 20 ml PO QID PRN 10/17/20 09/11/21 07/04/21 History camphor-menthol [Biofreeze] See Rx Instructions .ROUTE .COMPLEX 10/17/20 09/11/21 07/04/21 History lactose-reduced food with fibr See Rx Instructions .ROUTE .COMPLEX 10/17/20 09/11/21 07/04/21 History [Isosource 1.5 Asaf] levetiracetam 1,000 mg PO BID@,10/17/20 09/11/21 07/04/21 History sodium phosphates [Fleet Enema] 118 ml CA DAILY PRN 10/17/20 09/11/21 07/04/21 History valproic acid 500 mg PO TID@,,10/17/20 09/11/21 07/04/21 History levothyroxine 100 mcg/mL oral 50 mcg PO DAILY #30 ml 03/10/21 09/11/21 07/04/21 Rx solution Allergies Allergy/AdvReac Type Severity Reaction Status Date / Time No Known Allergies Allergy Verified 08/15/21 12:11 PFSH Acute PFSH: Medical History (Updated 09/16/21 @ 23:48 by Mandy Means MD) Cerebral palsy HTN (hypertension) Hypothyroidism, unspecified Vitals/I&O/Wt Last Vital Signs Temp 98.7 F 09/16/21 15:38 Pulse 102 H 09/16/21 22:30 Resp 21 H 09/16/21 22:30 BP 111/67 09/16/21 22:30 Pulse Ox 97 09/16/21 22:30 Weight last 48 hrs Weight 49.895 kg Physical Exam Narrative: EXAM NARRATIVE: General: Appears uncomfortbale, winces to touch, says yes to pain everywhere. HEENT: PERRLA, pupils bilaterally equal and reactive, pallors not present Chest: Normal vesicular breath sounds, no added sounds, equal good air entry bilaterally CVS: S1-S2 regular, no murmurs, no tachycardia, no gallops, no rubs Abdomen: Soft, nondistended, no organomegaly, bowel sounds present, PEG Neuro: B/L contractures upper and lower extremities. Urinary Catheter Management^: Ceron: Cath Placed During This Visit: yes Urinary Catheter Date of Insertion: 09/16/21 Urinary Catheter Time of Insertion: 18:20 Data : 09/16/21 16:30 09/16/21 16:30 Micro: Microbiology 09/16/21 16:50 Blood Culture - Preliminary Blood SPECIMEN COLLECTED 09/16/21 16:30 Blood Culture - Preliminary Blood SPECIMEN COLLECTED A&P Assessment and plan (1) Sepsis: meets criteria by way of leukocytosis, fever, hypotension, + UA Currently receiving 3L fluid bolus, levophed additionally ordered to keep MAP >65mmhg Blood cx taken prior to starting abx ceftriaxone 1g iv q24h empirically Likely related to UTI, awaiting urine cx Check COVID PCR CXR without gross infiltrates Status: Acute Qualifiers: Sepsis type: sepsis due to unspecified organism Sepsis acute organ dysfunction status: without acute organ dysfunction Qualified Code(s): A41.9 - Sepsis, unspecified organism (2) UTI (urinary tract infection): Status: Acute Qualifiers: Urinary tract infection type: acute cystitis Hematuria presence: with hematuria Qualified Code(s): N30.01 - Acute cystitis with hematuria (3) Hypernatremia: maintainence fuids with D5 1/2 NS @ 75cc /hr Status: Acute Additional A&P Information Cerebral palsy: Continue home medications including keppra, valproate, levothyroxine Attestations Medical Necessity Statement*: >2 midnight anticipated for managemnet of sepsis, IVF fluids and iv abx Coding Level of Care Code Acute Arm Maker for [facility] Fwd Diagnoses Sepsis A41.9 Sepsis type: sepsis due to unspecified organism Sepsis acute organ dysfunction status: without acute organ dysfunction UTI (urinary tract infection) N30.01 Urinary tract infection type: acute cystitis Hematuria presence: with hematuria Hypernatremia E87.0
[2021-09-16] MEDS: dextrose 5%-sod chloride 0.45% 1,000 ML 75 ML IV (23:39)
[2021-09-16] MEDS: enoxaparin 40 mg/0.4 mL Syringe SUBCUT (23:39)
[2021-09-17] VITALS (89 sets, daily range): BP systolic 71–126; BP diastolic 42–97; PULSE 88–119; RESP 13–35; TEMP 37–39.5; O2SAT 88–100
[2021-09-17] MEDS: acetaminophen 325 mg Tablet 650 MG PO ×3 (04:45→21:15)
[2021-09-17 05:47] LABS: Alanine Aminotransferase 26 U/L (0-33); Albumin Level 2.6 g/dL (3.5-5.2); Alkaline Phosphatase 89 IU/L (35-105); Aspartate Amino Transferase 41 U/L (0-32); Blood Urea Nitrogen 22 mg/dL (6-20); Calcium 7.1 mg/dL (8.5-10.5); Carbon Dioxide 19 mmol/L (22-29); Chloride 127 mmol/L (98-107); Globulin 2.6 g/dL (1.3-4.6); Glomerular Filtration Rate 92.7 mL/min (90-130); Glucose 70 mg/dL (65-115); Magnesium 1.9 mg/dL (1.7-2.3); Osmolality Calculated 330 mOsm/kg (285-295); Sodium 159 mmol/L (136-145); Total Bilirubin 0.2 mg/dL (0.15-1.2); Total Protein 5.2 g/dL (6.6-8.7)
[2021-09-17 05:55] LABS: Hematocrit 40.4 % (37.0-47.0); Hemoglobin 12.9 g/dL (11.5-15.3); Mean Corpuscular HGB Conc 31.9 g/dL (30.0-36.0); Mean Corpuscular Hemoglobin 33.4 pg (28.0-34.0); Mean Corpuscular Volume 104.7 fl (81-99); Mean Platelet Volume 12.1 fL (7.4-10.4); Nucleated Red Blood Cells % 0.1 %; Platelet Count 69 10^3/cmm (130-400); Red Blood Count 3.86 10^6/uL (4.1-5.3); Red Cell Distribution Width 15.8 % (12.1-15.1); White Blood Count 17.2 10^3/uL (4.0-10.0)
[2021-09-17 05:59] LABS: Anion Gap 17.7 (5-19); Potassium 4.7 mmol/L (3.5-5.1)
[2021-09-17] MEDS: dextrose 5% 1,000 ML 75 ML IV (07:43)
[2021-09-17] MEDS: gabapentin 300 mg Capsule PEG-TUBE ×2 (08:34→20:27)
[2021-09-17] MEDS: venlafaxine 75 mg Tablet PEG-TUBE (08:34)
[2021-09-17] MEDS: pantoprazole DR 40 mg Tablet PO (08:34)
[2021-09-17] MEDS: baclofen 10 mg Tablet PEG-TUBE ×2 (08:35→20:27)
[2021-09-17] MEDS: zonisamide 100 MG Capsule 200 MG PEG-TUBE (08:35)
[2021-09-17] MEDS: morphine 4 mg/mL SDV 1 mL 2 MG IVP (09:28)
--- NOTE | 2021-09-17 13:11 | PM.PN ---
Subjective Subjective: Interval history: Seen this AM. Patient is able to answer yes and no, she asked me if she could have some water this morning, IV antibiotics escalated, started D5 Noted some drainage around the PEG tube Will start PEG tube feeding, Vitals/I&O/Wt Last Vital Signs Temp 98.6 F 09/17/21 12:00 Pulse 90 09/17/21 12:00 Resp 18 09/17/21 12:00 BP 120/80 09/17/21 12:00 Pulse Ox 95 09/17/21 12:00 09/16/21 09/17/21 09/17/21 22:59 06:59 14:59 Intake Total 6.223 / 6.223 888.763 / 888.763 Output Total 1700 / 1700 Balance -1693.777 / -1693.777 888.763 / 888.763 Weight last 48 hrs Weight 49.895 kg Physical Exam Narrative: EXAM NARRATIVE: Patient with extremity contractures She has been treated as some water PEG tube site has some drainage at the insertion site with skin maceration Dressing in place No signs of necrosis It is tender on palpation Ceron catheter draining concentrated urine Patient looks dehydrated Dry mucous membranes Patient has eye twitching however no active signs of seizure Urinary Catheter Management^: Ceron: Cath Placed During This Visit: yes Reason for Continuing Indwelling Catheter: Accurate Measurement of Urinary Output in Critically Ill Patients Urinary Catheter Date of Insertion: 09/16/21 Urinary Catheter Time of Insertion: 18:20 Data : 09/17/21 04:46 09/17/21 04:46 Micro: Microbiology 09/16/21 16:50 Blood Culture - Preliminary Blood SPECIMEN COLLECTED 09/16/21 16:30 Blood Culture - Preliminary Blood SPECIMEN COLLECTED A&P Assessment and plan (1) UTI (urinary tract infection): Status: Acute Qualifiers: Hematuria presence: with hematuria Urinary tract infection type: acute cystitis Qualified Code(s): N30.01 - Acute cystitis with hematuria (2) Hypernatremia: Status: Acute (3) Hypothyroidism, unspecified: Status: Acute Qualifiers: Hypothyroidism type: unspecified Qualified Code(s): E03.9 - Hypothyroidism, unspecified (4) Sepsis: Status: Acute Qualifiers: Sepsis acute organ dysfunction status: without acute organ dysfunction Sepsis type: sepsis due to unspecified organism Qualified Code(s): A41.9 - Sepsis, unspecified organism (5) HTN (hypertension): Status: Acute (6) Cerebral palsy: Status: Acute Qualifiers: Cerebral palsy type: unspecified type Qualified Code(s): G80.9 - Cerebral palsy, unspecified Additional A&P Information #Sepsis secondary to UTI #Hypernatremia #Chronic cerebral palsy #skilled nursing resident: Kali Carrington #Thrombocytopenia #Dehydration #Hx of HTN - presented with hypotension/sepsis Septic shock Escalated antibiotics this morning to imipenem Start D5 No signs of meningismus, most likely source is urinary We'll follow up urine cultures Levo running at 5 today Continue PEG tube feeds PEG tube insertion site does not look necrotic, there is some cellulitis with skin maceration, would use local loose dry dressing, zinc oxide barrier ointment DNR/DNI Attestations Medical Necessity Statement*: Continue ICU stay Time Spent in Patient Care: 16 - 35 minutes Coding Level of Care Code Acute Credit Or Loans Officer for [facility] Fwd Diagnoses UTI (urinary tract infection) N30.01 Hematuria presence: with hematuria Urinary tract infection type: acute cystitis Hypernatremia E87.0 Hypothyroidism, unspecified E03.9 Hypothyroidism type: unspecified Sepsis A41.9 Sepsis acute organ dysfunction status: without acute organ dysfunction Sepsis type: sepsis due to unspecified organism HTN (hypertension) I10 Cerebral palsy G80.9 Cerebral palsy type: unspecified type
--- NOTE | 2021-09-17 16:38 | PC.NURSE ---
Two out of four blood bottles back with gram negative rods.
[2021-09-17 17:42] LABS: Sodium 149 mmol/L (136-145)
--- NOTE | 2021-09-17 18:26 | PC.NURSE ---
Shift Note Frequent safety and comfort rounds continue. Orders and/or nursing care completed as indicated. Patient monitored for response to intervention and treatment(s). Education provided includes new results, medications, and care plan. Patient verbalized understanding. Patient is only oriented to self and location. Nurse oriented patient to time and situation. Patient requested something to drink when Dr. Sultana rounded. Dr. Sultana okayed the patient to get sips. Patient has sipy cup with Dr. Villela at bedside. Patient states that she loves the nurses when patient gets to drink. Patient able to press call light to request a drink. Patient communicates with one to two words at a time.
[2021-09-17] MEDS: dextrose 5%-sod chloride 0.45% 1,000 ML 75 ML IV (20:27)
[2021-09-17 21:21] LABS: Sodium 151 mmol/L (136-145)
[2021-09-18] VITALS (19 sets, daily range): BP systolic 83–117; BP diastolic 51–81; PULSE 78–100; RESP 12–22; TEMP 36.8–38.1; O2SAT 92–97
[2021-09-18] MEDS: enoxaparin 40 mg/0.4 mL Syringe SUBCUT (01:13)
[2021-09-18 05:25] LABS: Hematocrit 33.3 % (37.0-47.0); Hemoglobin 10.2 g/dL (11.5-15.3); Mean Corpuscular HGB Conc 30.6 g/dL (30.0-36.0); Mean Corpuscular Hemoglobin 32.9 pg (28.0-34.0); Mean Corpuscular Volume 107.4 fl (81-99); Mean Platelet Volume 12.2 fL (7.4-10.4); Platelet Count 56 10^3/cmm (130-400); Red Cell Distribution Width 15.8 % (12.1-15.1); White Blood Count 10.7 10^3/uL (4.0-10.0)
[2021-09-18 05:45] LABS: Anion Gap 15.5 (5-19); Blood Urea Nitrogen 19 mg/dL (6-20); Calcium 7.2 mg/dL (8.5-10.5); Carbon Dioxide 18 mmol/L (22-29); Chloride 118 mmol/L (98-107); Glomerular Filtration Rate 79.4 mL/min (90-130); Glucose 83 mg/dL (65-115); Magnesium 1.8 mg/dL (1.7-2.3); Osmolality Calculated 307 mOsm/kg (285-295); Potassium 3.5 mmol/L (3.5-5.1); Sodium 148 mmol/L (136-145)
[2021-09-18 06:06] LABS: Absolute Neutrophil 9.6 10^3/cmm (1.4-6.5); Absolute Segmented Neutrophil 7.1 10/cmm (1.6-7.1); Band Neutrophils Absolute 2.6 10^3/cmm (0.0-1.2); Eosinophils 0 %; Lymphocytes 8 %; Lymphocytes Absolute 0.9 10^3/cmm (1.2-3.4); Monocytes Absolute 0.1 10^3/cmm (0.1-0.6); Platelet Estimate Decreased (Normal); Segmented Neutrophils 66 %; Total Cells Counted 100 (0-100)
--- NOTE | 2021-09-18 06:36 | PC.NURSE ---
Transfer Note Patient transferred to CSU bed 103 from ICU via bed. Handoff report given to KAROLINE Varela. Patient oriented to environment and equipment. Covering service notified. Orders reviewed and will continue to monitor. Family and/or sales representative consultant notified. All belongings (clothing) transferred with patient. Patient transferred with Jevity 1.2 at 20 mls/hr infusing through PEG tube, no gastric residual overnight. Gastric leakage is noted around PEG insertion site. Left forearm IV infusing D5 with 1/2 NS at 75 mls/hr. Patient remains confused, arms and legs are contracted, no wounds noted at this time. No reports of pain overnight. Ceron catheter drained 280 mls of urine overnight. Patient noted to have a fever at beginning of shift, Tylenol was administered.
--- NOTE | 2021-09-18 09:20 | PC.NURSE ---
Was concerned about PEG tube placement. Patient was complaining of pain. There was some drainage around the insertion. No odor. Physician was notified. No new orders were received. Nurse will continue to monitor.
[2021-09-18] MEDS: pantoprazole DR 40 mg Tablet PO (09:59)
[2021-09-18] MEDS: zonisamide 100 MG Capsule 200 MG PEG-TUBE (09:59)
[2021-09-18] MEDS: gabapentin 300 mg Capsule PEG-TUBE ×2 (09:59→20:21)
[2021-09-18] MEDS: baclofen 10 mg Tablet PEG-TUBE ×2 (10:00→20:19)
[2021-09-18] MEDS: dextrose 5%-sod chloride 0.45% 1,000 ML 75 ML IV (10:06)
[2021-09-18] MEDS: venlafaxine 75 mg Tablet PEG-TUBE (12:18)
--- NOTE | 2021-09-18 13:23 | P.PN_ITS ---
Subjective Subjective: Interval history: Started tube feed at 50 mL/h with water flushes, hold D5 half-normal saline Repeat blood cultures today Pain medication for headache Vitals/I&O/Wt Last Vital Signs Temp 100.6 F H 09/18/21 12:00 Pulse 86 09/18/21 12:00 Resp 22 H 09/18/21 12:00 BP 97/73 09/18/21 12:00 Pulse Ox 97 09/18/21 12:00 09/17/21 09/18/21 09/18/21 22:59 06:59 14:59 Intake Total 1076 / 2064.763 100 / 2164.763 1100 / 1100 Output Total 525 / 525 280 / 805 Balance 551 / 1539.763 -180 / 4666.723 0326 / 1100 Weight last 48 hrs Weight 49.895 kg Physical Exam Narrative: EXAM NARRATIVE: Young female Extremity contractures Cerebral palsy PEG tube in place with DuoDERM She does not have any residuals, gastric feeding noted around insertion site maceration of skin with dermatitis no active purulent cellulitis noted Ceron catheter draining concentrated urine Clinically looks dehydrated Dry mucous membranes Answers to my questions appropriately Urinary Catheter Management^: Ceron: Cath Placed During This Visit: yes Reason for Continuing Indwelling Catheter: Accurate Measurement of Urinary Output in Critically Ill Patients Urinary Catheter Date of Insertion: 09/16/21 Urinary Catheter Time of Insertion: 18:20 Data : 09/18/21 04:39 09/18/21 04:39 Micro: Microbiology 09/16/21 18:07 Urine Culture - Preliminary Urine Catheterized Gram Negative Rods 09/16/21 16:50 Blood Culture - Preliminary Blood Gram Negative Rods 09/16/21 16:30 Blood Culture - Preliminary Blood Gram Negative Rods A&P Assessment and plan (1) Hypernatremia: Status: Acute (2) UTI (urinary tract infection): Status: Acute Qualifiers: Urinary tract infection type: acute cystitis Hematuria presence: with hematuria Qualified Code(s): N30.01 - Acute cystitis with hematuria (3) Sepsis: Status: Acute Qualifiers: Sepsis type: sepsis due to unspecified organism Sepsis acute organ dysfunction status: without acute organ dysfunction Qualified Code(s): A41.9 - Sepsis, unspecified organism (4) Bacteremia: Status: Acute (5) Hypothyroidism, unspecified: Status: Acute Qualifiers: Hypothyroidism type: unspecified Qualified Code(s): E03.9 - Hypothyroidism, unspecified (6) Cerebral palsy: Status: Acute Qualifiers: Cerebral palsy type: unspecified type Qualified Code(s): G80.9 - Cerebral palsy, unspecified (7) HTN (hypertension): Status: Acute Additional A&P Information Sepsis, bacteremia Repeat blood cultures Continue imipenem Blood pressure stable Septic shock: Resolved Not requiring vasopressors Hypernatremia Hold D5 half-normal saline, added water flushes and start tube feeding at 50 mL/h Appreciate dietary recommendations sepsis Induced thrombocytopenia Leukocytosis improving DNR/DNI Clear liquid diet via p.o. start tube feeding DVT prophylaxis: Lovenox Attestations Medical Necessity Statement*: Continue medical management Time Spent in Patient Care: less than 15 minutes Coding Level of Care Code Acute Clerical Transcriber for [facility] Fwd Diagnoses Hypernatremia E87.0 UTI (urinary tract infection) N30.01 Urinary tract infection type: acute cystitis Hematuria presence: with hematuria Sepsis A41.9 Sepsis type: sepsis due to unspecified organism Sepsis acute organ dysfunction status: without acute organ dysfunction Bacteremia R78.81 Hypothyroidism, unspecified E03.9 Hypothyroidism type: unspecified Cerebral palsy G80.9 Cerebral palsy type: unspecified type HTN (hypertension) I10
[2021-09-18] MEDS: acetaminophen 325 mg Tablet 650 MG PO (14:39)
[2021-09-18 19:02] LABS: Quest SARS-CoV-2 RNA NOT DETECTED (NOT DETECTED)
[2021-09-18] MEDS: sodium chloride 0.9% (100 ml) 100 ML 200 ML (20:20)
[2021-09-19] VITALS (7 sets, daily range): BP systolic 87–96; BP diastolic 59–62; PULSE 60–81; RESP 17–20; TEMP 35.9–37.1; O2SAT 92–95
[2021-09-19] MEDS: enoxaparin 40 mg/0.4 mL Syringe SUBCUT ×2 (03:34→23:02)
[2021-09-19] MEDS: ondansetron 2 mg/ML SDV 2 mL 4 MG IVP ×2 (03:42→21:27)
[2021-09-19 04:11] LABS: Basophils % 0.4 %; Eosinophils # 0.1 10^3/uL (0.0-0.8); Eosinophils % 0.5 %; Hematocrit 28.6 % (37.0-47.0); Hemoglobin 9.1 g/dL (11.5-15.3); Lymphocytes # 1.7 10^3/uL (0.8-4.8); Lymphocytes % 17.8 %; Mean Corpuscular HGB Conc 31.8 g/dL (30.0-36.0); Mean Corpuscular Hemoglobin 32.3 pg (28.0-34.0); Mean Corpuscular Volume 101.4 fl (81-99); Monocytes # 0.5 10^3/uL (0.2-0.9); Monocytes % 5.5 %; Neutrophils # 7.25 10^3/uL (1.8-7.7); Neutrophils % 74.7 %; Nucleated Red Blood Cells # 0.1 /100WBC; Nucleated Red Blood Cells % 0.5 %; Platelet Count 68 10^3/cmm (130-400); Red Blood Count 2.82 10^6/uL (4.1-5.3); Red Cell Distribution Width 14.8 % (12.1-15.1); White Blood Count 9.7 10^3/uL (4.0-10.0)
[2021-09-19 04:31] LABS: Anion Gap 10.7 (5-19); Blood Urea Nitrogen 21 mg/dL (6-20); Calcium 7.1 mg/dL (8.5-10.5); Carbon Dioxide 20 mmol/L (22-29); Chloride 117 mmol/L (98-107); Glomerular Filtration Rate 92.7 mL/min (90-130); Glucose 120 mg/dL (65-115); Osmolality Calculated 302 mOsm/kg (285-295); Potassium 3.7 mmol/L (3.5-5.1); Sodium 144 mmol/L (136-145)
[2021-09-19] MEDS: acetaminophen 325 mg Tablet 650 MG PO ×3 (06:32→21:07)
[2021-09-19] MEDS: venlafaxine 75 mg Tablet PEG-TUBE (09:09)
[2021-09-19] MEDS: gabapentin 300 mg Capsule PEG-TUBE ×2 (09:09→21:07)
[2021-09-19] MEDS: zonisamide 100 MG Capsule 200 MG PEG-TUBE (09:10)
[2021-09-19] MEDS: baclofen 10 mg Tablet PEG-TUBE ×2 (09:10→21:06)
[2021-09-19] MEDS: pantoprazole DR 40 mg Tablet PO (09:10)
--- NOTE | 2021-09-19 09:17 | P.PN_ITS ---
Subjective Subjective: Interval history: Patient was seen and examined this morning, leukocytosis trending down, low-grade fever overnight, hemoglobin 9.1 Patient is not endorsing headache today Patient is stating that she had an episode of vomiting, currently the nursing staff she was spitting her clear liquid diet, tube feeding was held last night Abdomen does not show active drainage, will continue her tube feeding, will make her n.p.o. for now Vitals/I&O/Wt Last Vital Signs Temp 98.1 F 09/19/21 03:51 Pulse 60 09/19/21 05:41 Resp 20 H 09/19/21 03:51 BP 95/60 09/19/21 03:51 Pulse Ox 94 09/19/21 03:51 09/18/21 09/19/21 09/19/21 22:59 06:59 14:59 Intake Total 633 / 2066 100 / 2166 Output Total 580 / 580 500 / 1080 Balance 53 / 1486 -400 / 1086 Physical Exam Narrative: EXAM NARRATIVE: When entered the room she was able to direct her attention towards me She is appropriately commenting on the TV show that she is watching She is not endorsing active abdominal pain however stating that she had an episode of vomiting Denying dysuria, headache improved Extremity contractures She had a cup in her right hand No audible stridor or wheezing doing well on room air S1, S2 Systolic blood pressure 95 mmHg, clinically dehydrated Ceron catheter draining concentrated urine Urinary Catheter Management^: Ceron: Cath Placed During This Visit: yes Reason for Continuing Indwelling Catheter: Not indwelling catheter Urinary Catheter Date of Insertion: 09/16/21 Urinary Catheter Time of Insertion: 18:20 Data : 09/19/21 03:30 09/19/21 03:30 Micro: Microbiology 09/16/21 16:50 Blood Culture - Preliminary Blood Gram Negative Rods 09/16/21 16:30 Blood Culture - Preliminary Blood Gram Negative Rods 09/18/21 15:00 Blood Culture - Preliminary Blood SPECIMEN COLLECTED 09/18/21 14:55 Blood Culture - Preliminary Blood SPECIMEN COLLECTED 09/16/21 18:07 Urine Culture - Preliminary Urine Catheterized Gram Negative Rods A&P Assessment and plan (1) Bacteremia: Status: Acute (2) Hypernatremia: Status: Acute (3) UTI (urinary tract infection): Status: Acute Qualifiers: Urinary tract infection type: acute cystitis Hematuria presence: with hematuria Qualified Code(s): N30.01 - Acute cystitis with hematuria (4) Sepsis: Status: Acute Qualifiers: Sepsis type: sepsis due to unspecified organism Sepsis acute organ dy sfunction status: without acute organ dysfunction Qualified Code(s): A41.9 - Sepsis, unspecified organism (5) Hypothyroidism, unspecified: Status: Acute Qualifiers: Hypothyroidism type: unspecified Qualified Code(s): E03.9 - Hypothyroidism, unspecified (6) HTN (hypertension): Status: Acute (7) Cerebral palsy: Status: Acute Qualifiers: Cerebral palsy type: unspecified type Qualified Code(s): G80.9 - Cereb ral palsy, unspecified Additional A&P Information Sepsis, bacteremia Sepsis resolved Repeat blood cultures showing no growth 09/18 Blood culture positive on 09/16 Most likely gram-negative martha bacteremia from urinary source, urine showing gram-negative rods as well Leukocytosis trending down, low-grade fever overnight Softer pressure We will give her 500 mL bolus PEG tube insertion site dermatitis Zinc oxide, barrier DuoDERM, avoid excessive dressing between the skin and the PEG tube Currently on imipenem Hypernatremia: Secondary to free water deficit, it has improved Continue tube feeding Appreciate dietary recommendations Continue hypothyroid and antipsychotics via PEG tube PEG tube feeding DVT prophylaxis Lovenox DNR/DNI Attestations Medical Necessity Statement*: Continue medical management anticipating discharge once culture sensitivities reported Time Spent in Patient Care: less than 15 minutes Coding Level of Care Code Acute Targeting Acquisition Officer for [facility] Fwd Diagnoses Bacteremia R78.81 Hypernatremia E87.0 UTI (urinary tract infection) N30.01 Urinary tract infection type: acute cystitis Hematuria presence: with hematuria Sepsis A41.9 Sepsis type: sepsis due to unspecified organism Sepsis acute organ dysfunction status: without acute organ dysfunction Hypothyroidism, unspecified E03.9 Hypothyroidism type: unspecified HTN (hypertension) I10 Cerebral palsy G80.9 Cerebral palsy type: unspecified type
--- NOTE | 2021-09-19 11:40 | PC.NURSE ---
Report given, patient transferred to med surg floor. Patient oriented to floor. All belongings were sent with patient. VS stable upon departure.
--- NOTE | 2021-09-19 14:39 | PC.SOCIAL ---
IMM Update IMM updated with patient. Attempted to call [facility] and left messages. Copy left at bedside. Initialled, dated, timed, and placed in chart.
--- NOTE | 2021-09-19 16:19 | PC.NURSE ---
updated patient's sister on patient's stay
[2021-09-19] MEDS: promethazine 25 mg/mL SDV 1 mL IM (23:00)
[2021-09-20] VITALS: BP 104/65; PULSE 70; RESP 16; TEMP 36.4; O2SAT 94
--- NOTE | 2021-09-20 00:09 | PC.NURSE ---
i reported low temp 97.5 to nurse
[2021-09-20 03:47] LABS: Basophils % 0.4 %; Eosinophils # 0.2 10^3/uL (0.0-0.8); Hematocrit 28.3 % (37.0-47.0); Hemoglobin 8.9 g/dL (11.5-15.3); Lymphocytes # 2.1 10^3/uL (0.8-4.8); Lymphocytes % 25.3 %; Mean Corpuscular HGB Conc 31.4 g/dL (30.0-36.0); Mean Corpuscular Hemoglobin 32.2 pg (28.0-34.0); Mean Corpuscular Volume 102.5 fl (81-99); Mean Platelet Volume 12.4 fL (7.4-10.4); Monocytes # 0.6 10^3/uL (0.2-0.9); Monocytes % 6.9 %; Neutrophils # 5.35 10^3/uL (1.8-7.7); Neutrophils % 63.7 %; Nucleated Red Blood Cells % 0.4 %; Platelet Count 77 10^3/cmm (130-400); Red Blood Count 2.76 10^6/uL (4.1-5.3); Red Cell Distribution Width 14.5 % (12.1-15.1); White Blood Count 8.4 10^3/uL (4.0-10.0)
[2021-09-20 04:00] VITALS: BP 96/58; PULSE 69; RESP 16; TEMP 36.6; O2SAT 92
[2021-09-20 04:13] LABS: Anion Gap 12.9 (5-19); Blood Urea Nitrogen 21 mg/dL (6-20); Calcium 7.5 mg/dL (8.5-10.5); Carbon Dioxide 21 mmol/L (22-29); Chloride 115 mmol/L (98-107); Glomerular Filtration Rate 110.7 mL/min (90-130); Glucose 91 mg/dL (65-115); Osmolality Calculated 303 mOsm/kg (285-295); Potassium 3.9 mmol/L (3.5-5.1); Sodium 145 mmol/L (136-145)
[2021-09-20 04:15] LABS: Procalcitonin 0.51 ng/mL (0-0.5)
[2021-09-20 06:00] VITALS: PULSE 62
[2021-09-20 07:36] VITALS: BP 100/64; PULSE 69; RESP 16; TEMP 36.8; O2SAT 90
[2021-09-20] MEDS: gabapentin 300 mg Capsule PEG-TUBE (09:20)
[2021-09-20] MEDS: zonisamide 100 MG Capsule 200 MG PEG-TUBE (09:20)
[2021-09-20] MEDS: baclofen 10 mg Tablet PEG-TUBE (09:21)
[2021-09-20] MEDS: pantoprazole DR 40 mg Tablet PO (09:21)
[2021-09-20] MEDS: venlafaxine 75 mg Tablet PEG-TUBE (09:31)
[2021-09-20 11:22] VITALS: BP 91/53; PULSE 78; RESP 16; TEMP 36.4; O2SAT 94
--- NOTE | 2021-09-20 11:36 | P.DS_ITS ---
Discharge Providers Date of Admission: 09/16/21 20:45 Date of Discharge: September 20, 2021 Attending Provider at Admission: Mandy Means MD Attending Provider at Discharge: Kalpana Sultana MD Primary Care Provider: Michael Stokes MD Diagnoses at Discharge Discharge Diagnosis (1) Bacteremia: Status: Acute (2) Hypernatremia: Status: Acute (3) UTI (urinary tract infection): Status: Acute Qualifiers: Hematuria presence: with hematuria Urinary tract infection type: acute cystitis Qualified Code(s): N30.01 - Acute cystitis with hematuria (4) Sepsis: Status: Acute Qualifiers: Sepsis acute organ dysfunction status: without acute organ dysfunction Sepsis type: sepsis due to unspecified organism Qualified Code(s): A41.9 - Sepsis, unspecified organism (5) Hypothyroidism, unspecified: Status: Acute Qualifiers: Hypothyroidism type: unspecified Qualified Code(s): E03.9 - Hypothyroidism, unspecified (6) HTN (hypertension): Status: Acute (7) Cerebral palsy: Status: Acute Qualifiers: Cerebral palsy type: unspecified type Qualified Code(s): G80.9 - Cerebral palsy, unspecified Reason for Visit Reason for Visit: LETHARGIC/ HEADACHE Hospital Course Hospital Course History of Present Illness by Dr Miguelangel Head Herber Cordova is a 41 year old female resident at [facility], cerebral palsy with extensive contractures. Over the past few days she was noted to have soft BP at [place], thought to be dehydrated initially. Today she spiked a fever >101.6F at the facility and was hypotensive in the 70s. Rapid Covid AG negative. History obtained by talking to nurse at [facility], patient unable to participate, says yes to all questions. At a baseline able to speak few words. No h/o cough, dyspnea, has been on RA, no nausea, vomiting or diarrhea. She is on tube feeds via PEG, intermittently takes some foods for comfort. No c/o dysuria. On labs today, notes to have leukocytosis of 15, hypotensive with SBP 70s, currently received 3L fluids. vaccinated for covid 19 Hosp Course: Patient was admitted from [facility] for management of septic shock. She was in ICU required vasopressors which were weaned off in the next 12 hours, at the time of admission she was started on Zosyn, because of worsening leukocytosis I escalated her antibiotics to imipenem, urine culture and blood culture positive for gram-negative martha Proteus mirabilis sensitive to Levaquin and penicillin. During her hospitalization her leukocytosis improved, blood pressure improved as well. She was extremely dehydrated for which she required D5 IV fluids. Hyper natremia improved, tube feedings were continued. She does have dermatitis around PEG tube insertion, zinc oxide barrier cream with DuoDERM. No residuals during tube feeding noted. She was made n.p.o. when she started spitting fluid. On 09/20 she will be discharged back to custodial with 14-day regimen on Levaquin. Repeat blood cultures are negative. Afebrile since 36 hours. First culture +09/18, repeat blood cultures 09/18 stay well today. Ceron catheter was placed in the ER, we are planning to remove Ceron catheter before her discharge back to the custodial. She is at risk of aspiration pneumonia, if increased gastric residuals would recommend tube feeding boluses, keeping her upright. Physical Exam Narrative: EXAM NARRATIVE: Cerebral palsy Extremity contractures Mild signs of dehydration today PEG tube insertion site has DuoDERM Ceron catheter draining yellow-colored urine Patient does answer my questions appropriately Dry mucous membranes Saturating well on room air Urinary Catheter Management^: Ceron: Cath Placed During This Visit: yes Reason for Continuing Indwelling Catheter: Accurate Measurement of Urinary Out put in Critically Ill Patients Urinary Catheter Date of Insertion: 09/16/21 Urinary Catheter Time of Insertion: 18:20 Discharge Data Data Completed and Pending: Completed Studies During Hospitalization Category Date Time Status CT abdomen pelvis w con* [id number] Stat Cat Scan 09/16/21 16:07 Completed XR chest 1V jah ble [id number] Stat Exams 09/16/21 16:01 Completed Pending at discharge Category Date Time Status Blood Culture Sta t Lab 09/16/21 16:50 Results Blood Culture Sta t Lab 09/18/21 15:00 Results Coronavirus PCR R outine Lab 09/20/21 10:45 Received Labs from last 24 hours 09/20/21 09/20/21 09/20/21 10:45 10:45 03:26 WBC RBC Hgb Hct MCV MCH MCHC RDW Plt Count MPV Neut % (Auto) Lymph % (Auto) [place] % (Auto) Eos % (Auto) Baso % (Auto) Neut # (Auto) Lymph # (Auto) [place] # (Auto) Eos # (Auto) Baso # (Auto) Nucleated RBC % (a uto) Nucleated RBCs # Sodium 145 Potassium 3.9 Chloride 115 H Carbon Dioxide 21 L Anion Gap 12.9 BUN 21 H Creatinine 0.6 GFR Calculation 110.7 Glucose 91 Calculated Osmolal ity 303 H Calcium 7.5 L Procalcitonin 0.51 H Coronavirus 229E ( PCR) Pending SARS-CoV-2 (PCR) Pending SARS-CoV-2 Ag (Rap id) Cancelled 09/20/21 03:26 WBC 8.4 RBC 2.76 L Hgb 8.9 L Hct 28.3 L MCV 102.5 H MCH 32.2 MCHC 31.4 RDW 14.5 Plt Count 77 L MPV 12.4 H Neut % (Auto) 63.7 Lymph % (Auto) 25.3 [place] % (Auto) 6.9 Eos % (Auto) 2.0 Baso % (Auto) 0.4 Neut # (Auto) 5.35 Lymph # (Auto) 2.1 [place] # (Auto) 0.6 Eos # (Auto) 0.2 Baso # (Auto) 0.0 Nucleated RBC % (a uto) 0.4 Nucleated RBCs # 0.0 Sodium Potassium Chloride Carbon Dioxide Anion Gap BUN Creatinine GFR Calculation Glucose Calculated Osmolal ity Calcium Procalcitonin Coronavirus 229E ( PCR) SARS-CoV-2 (PCR) SARS-CoV-2 Ag (Rap id) Vitals: Last Vital Signs Temp 97.6 F 09/20/21 11:22 Pulse 78 09/20/21 11:22 Resp 16 09/20/21 11:22 BP 91/53 09/20/21 11:22 Pulse Ox 94 09/20/21 11:22 Discharge Plan Discharge Patient Disposition: Xfer SNF Condition: Stable Prescriptions: New levofloxacin 750 mg tablet 750 mg feeding tube Q24H 14 Days Qty: 14 RF: 0 Continued zonisamide [Zonegran] 100 mg capsule 200 mg PO DAILY@08 RF: 0 Eldertonic 0.5-0.6-7-0.7 mg elixir 30 ml PO DAILY@08 RF: 0 gabapentin 300 mg capsule 300 mg PO BID@ RF: 0 baclofen 10 mg tablet 10 mg PO BID@ RF: 0 venlafaxine 75 mg tablet 75 mg PO DAILY@08 RF: 0 desmopressin 0.2 mg tablet 0.2 mg PO BID@,20 RF: 0 ondansetron HCl 4 mg tablet 4 mg PO QID PRN (Reason: Nausea And Vomiting) RF: 0 magnesium hydroxide [Milk of Magnesia] 400 mg/5 mL suspension 30 ml PO DAILY PRN (Reason: Constipation) RF: 0 bisacodyl [Dulcolax (bisacodyl)] 10 mg suppository 10 mg PA DAILY PRN (Reason: Constipation) RF: 0 levetiracetam 100 mg/mL solution 1,000 mg PO BID@,20 RF: 0 Tylenol 650mg 20 ml PO QID PRN (Reason: pain/fever) RF: 0 Fleet Enema 19-7 gram/118 mL Enema 118 ml PA DAILY PRN (Reason: Constipation) RF: 0 Biofreeze 0.2-3.5 % Gel See Rx Instructions .ROUTE .COMPLEX RF: 0 levothyroxine 25 mcg Tablet 25 mcg feeding tube DAILY@0500 RF: 0 Celebrex 200 mg Capsule 200 mg PO DAILY RF: 0 valproic acid (as sodium salt) 250 mg/5 mL Solution 500 mg PO TID RF: 0 Discharge Orders: Discharge Order (Routine); Ordered 09/20/21 Ordered By: Kalpana Sultana Discharge Diet: As Directed Discharge Activity: Bedrest Patient Instructions: Levofloxacin (By mouth) Discharge Attestations Time Spent in Discharge Care*: less than 30 min Quality Metrics Clinical Quality Measures During this hospital stay, did patient experience: None Coding Level of Care Code Acute [facility] note Diagnoses Bacteremia R78.81 Hypernatremia E87.0 UTI (urinary tract infection) N30.01 Hematuria presence: with hematuria Urinary tract infection type: acute cystitis Sepsis A41.9 Sepsis acute organ dysfunction status: without acute organ dysfunction Sepsis type: sepsis due to unspecified organism Hypothyroidism, unspecified E03.9 Hypothyroidism type: unspecified HTN (hypertension) I10 Cerebral palsy G80.9 Cerebral palsy type: unspecified type
[2021-09-20] MEDS: acetaminophen 325 mg Tablet 650 MG PO (11:53)
[2021-09-20 13:37] LABS: Adenovirus Not Detected (NOT DETECT); Chlamydia Pneumoniae Not Detected (NOT DETECT); Coronavirus 229E,HKU1,NL63,OC4 Not Detected (NOT DETECT); Human Metapneumovirus Not Detected (NOT DETECT); Human Rhinovirus/Enterovirus Not Detected (NOT DETECT); Influenza A Not Detected (NOT DETECT); Influenza A H1 Not Detected (NOT DETECT); Influenza A H1-2009 Not Detected (NOT DETECT); Influenza A H3 Not Detected (NOT DETECT); Influenza B Not Detected (NOT DETECT); Mycoplasma Pneumoniae Not Detected (NOT DETECT); Parainfluenza Virus Type 1 Not Detected (NOT DETECT); Parainfluenza Virus Type 2 Not Detected (NOT DETECT); Parainfluenza Virus Type 3 Not Detected (NOT DETECT); Parainfluenza Virus Type 4 Not Detected (NOT DETECT); Respiratory Syncytial Virus A Not Detected (NOT DETECT); Respiratory Syncytial Virus B Not Detected (NOT DETECT); SARS-COV-2 Not Detected (NOT DETECT)
== END 2021-09-20 17:16 | disposition home or self-care (01) | DRG 871 ==
LOC: ER 19:10 → ER IP 21:36 → ICU 23:31 → CSU 09-18 06:28 → MEDSURG 09-19 11:42
PROVIDERS: Family Medicine; Admitting Provider Student in an Organized Health Care Education/Training Program; Emergency Provider Emergency Medicine; PCP Internal Medicine; Visit Provider Internal Medicine
DX: A41.9 Sepsis, unspecified organism (principal); R65.21 Severe sepsis with septic shock; N30.01 Acute cystitis with hematuria; E87.0 Hyperosmolality and hypernatremia; G80.9 Cerebral palsy, unspecified; I10 Essential (primary) hypertension; E03.9 Hypothyroidism, unspecified; I95.9 Hypotension, unspecified; Z93.1 Gastrostomy status; D69.59 Other secondary thrombocytopenia; E86.0 Dehydration; L30.9 Dermatitis, unspecified; B96.4 Proteus (mirabilis) (morganii) as the cause of diseases classified elsewhere
CPT/HCPCS: 36415; 36600; 51702; 71045; 74177; 80048; 80051; 80053; 81001; 82330; 82805; 83605; 83735; 84145; 84295; 85007; 85025; 87040; 87077; 87086; 87186; 87205; 87635; 96365; 96366; 96367; 96372; 96375; 99285; J0696; J0743; J1650; J2270; J2405; J2550; J7030; J7799; Q9967

== ENCOUNTER 2021-09-29 07:35 | Inpatient (IN) | payer MEDICARE, MEDICAID, SELFPAY ==
[2021-09-29] VITALS (19 sets, daily range): BP systolic 75–92; BP diastolic 48–61; PULSE 64–83; RESP 12–23; TEMP 36.1; O2SAT 77–98; BMI 15.9
--- NOTE | 2021-09-29 07:37 | ED_ITS ---
HPI - SOB/Dyspnea General: Chief Complaint: General Medical Stated Complaint: N/V/ LOW O2 SATS/ HTN Time Seen by Provider: 09/29/21 07:36 History of Present Illness: HPI Narrative: 41 yo [facility] with complaint of emesis hypoxia and hypotension. Patient has a history of cerebral palsy several years ago patient had a prolonged 6 seizure episode after which she was unable to manage herself and essentially completely bedridden. She eventually did regain ability to have a minimum level of communication. Today she presents with above complaints as well as nausea and vomiting she has had problems with aspiration pneumonia in the past she does have a PEG tube in place. She is not able to verbalize any significant past medical history or recent history of present illness. Patient is not usually on oxygen now requiring 2 L/min. MD elicited complaint: shortness of breath and cough Onset (ago): minute(s) Timing: intermittent Severity: moderate Exacerbating factors: nothing Relieving factors: oxygen and rest Associated symptoms: Reports chest congestion and cough; Deny hemoptysis Treatment prior to arrival: oxygen Review of Systems General: Reports: ROS unobtainable due to medical condition Resp: Reports: chest congestion; Denies: hemoptysis [facility] ED PFSH: Medical History (Updated 09/29/21 @ 12:24 by Scottie Khan DO) Cerebral palsy History of seizure disorder HTN (hypertension) Hypothyroidism, unspecified Surgical History (Updated 09/29/21 @ 11:53 by Kalpana Sultana MD) S/P percutaneous endoscopic gastrostomy (PEG) tube placement Family History (Updated 09/29/21 @ 11:51 by Kalpana Sultana MD) Other Family history non-contributory Social History (Updated 09/29/21 @ 11:51 by Kalpana Sultana MD) Smoking and tobacco status: unknown if ever smoked Alcohol intake: unknown Substance/Drug Use: unknown Housing: Residential Physical Exam Const: ORIENTATION/CONSCIOUSNESS: Yes awake HENMT: COMMON NORMALS: normocephalic and atraumatic HEAD & SCALP: normocephalic and atraumatic Neck/C-Spine: COMMON NORMALS: no JVD Resp: AUSCULTATION: rales and rhonchi Cardio: COMMON NORMALS: no JVD, regular rate, regular rhythm and No murmurs present (Cardio) RATE: regular rate RHYTHM: regular rhythm GI: COMMON NORMALS: No hepatosplenomegaly present AUSCULTATION: Yes normoactive bowel sounds PALPATION: Yes Tenderness to palpation present (GI) (Diffuse abdominal tenderness.), No Guarding due to palpation present (GI) and Yes No hepatosplenomegaly present Extremity: COMMON NORMALS: capillary refill normal, no clubbing, cyanosis or edema, no calf tenderness and no pedal edema OTHER: Contractions of upper and lower extremities. Skin: COMMON NORMALS: no rashes or lesions noted GENERAL SKIN EXAM: no rashes or lesions noted Course Vital Signs: Vital signs: Vital Signs Temperature 97 F L 09/29/21 07:46 Pulse Rate 71 09/29/21 08:04 Respiratory Rate 14 09/29/21 08:04 Blood Pressure 92/56 09/29/21 08:04 Pulse Oximetry 93 09/29/21 08:04 MDM - SOB/Dyspnea MDM Narrative: Medical decision making narrative: pneumonia with hypoxia, and severe hypernatremia. She been in the hospital and [facility] will cover with broad-spectrum antibiotics discussed with hospitalist orders are written will admit to the ICU. Lab Data: Labs: Lab Results 09/29/21 09/29/21 09/29/21 07:53 07:53 08:50 WBC 8.4 10^3/uL 10^3/ uL (4.0-10.0) RBC 2.76 10^6/uL L 10 ^6/uL (4.1-5.3) Hgb 9.0 g/dL L g/dL (11.5-15.3) Hct 29.6 % L % (37.0-47.0) MCV 107.2 fl H fl (81-99) MCH 32.6 pg pg (28.0-34.0) MCHC 30.4 g/dL g/dL (30.0-36.0) RDW 17.1 % H % (12.1-15.1) Plt Count 318 10^3/cmm 10^3 /cmm (130-400) MPV 11.1 fL H fL (7.4-10.4) Neut % (Auto) 70.2 % % Lymph % (Auto) 14.6 % % [place] % (Auto) 7.8 % % Eos % (Auto) 3.0 % % Baso % (Auto) 0.5 % % Neut # (Auto) 5.89 10^3/uL 10^3 /uL (1.8-7.7) Lymph # (Auto) 1.2 10^3/uL 10^3/ uL (0.8-4.8) [place] # (Auto) 0.7 10^3/uL 10^3/ uL (0.2-0.9) Eos # (Auto) 0.3 10^3/uL 10^3/ uL (0.0-0.8) Baso # (Auto) 0.0 10^3/uL 10^3/ uL (0.0-0.1) Nucleated RBC % (a uto) 1.0 % % Nucleated RBCs # 0.1 /100WBC /100W BC Sodium 164 mmol/L H* mmo l/L (136-145) Potassium 3.8 mmol/L mmol/L (3.5-5.1) Chloride 130 mmol/L H mmol /L (98-107) Carbon Dioxide 26 mmol/L mmol/L (22-29) Anion Gap 11.8 (5-19) BUN 38 mg/dL H mg/dL (6-20) Creatinine 0.7 mg/dL mg/dL (0.5-0.9) GFR Calculation 92.7 mL/min mL/mi n (90-130) Glucose 69 mg/dL mg/dL (65-115) Calculated Osmolal ity 345 mOsm/kg H mOs m/kg (285-295) Lactic Acid 1.7 mmol/L mmol/L (0.5-2.2) Calcium 8.0 mg/dL L mg/dL (8.5-10.5) Total Bilirubin 0.2 mg/dL mg/dL (0.15-1.2) AST 10 U/L U/L (0-32) ALT 11 U/L U/L (0-33) Alkaline Phosphata se 88 IU/L IU/L (35-105) Creatine Kinase 23 U/L L U/L (26-192) Total Protein 5.8 g/dL L g/dL (6.6-8.7) Albumin 2.2 g/dL L g/dL (3.5-5.2) Globulin 3.6 g/dL g/dL (1.3-4.6) Urine Color Urine Appearance Urine pH Ur Specific Gravit y Urine Protein Urine Glucose (UA) Urine Ketones Urine Blood Urine Nitrate Urine Bilirubin Urine Urobilinogen Ur Leukocyte Radha ase 09/29/21 09:05 WBC RBC Hgb Hct MCV MCH MCHC RDW Plt Count MPV Neut % (Auto) Lymph % (Auto) [place] % (Auto) Eos % (Auto) Baso % (Auto) Neut # (Auto) Lymph # (Auto) [place] # (Auto) Eos # (Auto) Baso # (Auto) Nucleated RBC % (a uto) Nucleated RBCs # Sodium Potassium Chloride Carbon Dioxide Anion Gap BUN Creatinine GFR Calculation Glucose Calculated Osmolal ity Lactic Acid Calcium Total Bilirubin AST ALT Alkaline Phosphata se Creatine Kinase Total Protein Albumin Globulin Urine Color Yellow (Yellow) Urine Appearance Clear (CLEAR) Urine pH 7 (5-7) Ur Specific Gravit y 1.010 (1.005-1.030) Urine Protein Neg (Negative) Urine Glucose (UA) Norm (Normal) Urine Ketones Negative (Negative) Urine Blood Neg (Negative) Urine Nitrate Negative (Negative) Urine Bilirubin Neg (Negative) Urine Urobilinogen Norm mg/dL mg/dL (Negative) Ur Leukocyte Radha ase Negative (Negative) Discharge Plan Discharge Patient Disposition: Admitted As Inpatient Admit Provider: Kalpana Sultana Clinical Impression: Pneumonia, Cerebral palsy, History of seizure disorder, Hypernatremia, HTN (hypertension), Hypothyroidism, unspecified Condition: Stable Coding Level of Care Code ED Dumpling Machine Operator for g Fwd Exam Comprehensive
--- NOTE | 2021-09-29 07:53 | XR_ITS ---
WS: [id number] CHEST XRAY TECHNIQUE: Portable chest. CLINICAL INFORMATION: dyspnea/cough COMPARISON: September 16, 2021 FINDINGS: Heart: Normal cardiac silhouette. Lungs: Interval development of right perihilar patchy infiltrate new since September 16, 2021 perihila r interstitial infiltrates or edema No significant pleural fluid. Correlation for pneumonia. Bones: Normal visualized bony structures. XR/XR chest 1V portable [id number] IMPRESSION: 1. Interval development of right hilar focal infiltrate with bilateral perihil ar interstitial infiltrates/edema. Recommend correlation for pneumonia. 2. Findings are new since September 16, 2021. Findings can be further evaluated chest CT.
--- NOTE | 2021-09-29 07:53 | ECG_ITS ---
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 [id number]
[2021-09-29 08:09] LABS: Basophils % 0.5 %; Eosinophils # 0.3 10^3/uL (0.0-0.8); Hematocrit 29.6 % (37.0-47.0); Lymphocytes # 1.2 10^3/uL (0.8-4.8); Lymphocytes % 14.6 %; Mean Corpuscular HGB Conc 30.4 g/dL (30.0-36.0); Mean Corpuscular Hemoglobin 32.6 pg (28.0-34.0); Mean Corpuscular Volume 107.2 fl (81-99); Mean Platelet Volume 11.1 fL (7.4-10.4); Monocytes # 0.7 10^3/uL (0.2-0.9); Monocytes % 7.8 %; Neutrophils # 5.89 10^3/uL (1.8-7.7); Neutrophils % 70.2 %; Nucleated Red Blood Cells # 0.1 /100WBC; Platelet Count 318 10^3/cmm (130-400); Red Blood Count 2.76 10^6/uL (4.1-5.3); Red Cell Distribution Width 17.1 % (12.1-15.1); White Blood Count 8.4 10^3/uL (4.0-10.0)
--- NOTE | 2021-09-29 08:10 | CT_ITS ---
WS: [id number] CT ABDOMEN PELVIS TECHNIQUE: Contrast-enhanced CT of the abdomen and pelvis with coronal and sagittal reformatted image s. CLINICAL INFORMATION: abd pain COMPARISON: September 16, 2021 DLP: 1495.[address] scans at [facility] use at least one of these dose optimization techniques: automated e xposure control; mA and/or kV adjustment per patient size (includes targeted exams where dose is matc hed to clinical indication); or iterative reconstruction. FINDINGS: Patchy nodular bibasilar infiltrates are new since September 16, 2021.Correlation for pneumonia. Hepat omegaly. Diffuse fatty infiltration the liver. Diffuse gallbladder wall thickening with cholelithiasi s and enhancement. Prominent gallstone measures 16 mm. Gallbladder can be further evaluated ultrasoun d. Normal spleen. Normal GE junction. Normal pancreas. Adrenal glands are normal. No hydronephrosis in e ither kidney. Normal caliber abdominal aorta. Normal spleen. Percutaneous gastrostomy tube. Tip in th e distal duodenum extending into the jejunum. Normal sigmoid colon. No evidence of high-grade small or large bowel obstruction. Mild transverse col on constipation. Small amount of free fluid in the pelvis. Retroverted uterus. Normal appendix in the right lower quadrant. CT/CT abdomen pelvis w con* [id number] IMPRESSION: 1. Interval development of bibasilar nodular infiltrates compatible with pneum onia. 2. Mild diffuse gallbladder wall thickening with enhancement. Gallbladder is s omewhat contracted. Prominent gallstone measuring 16 mm. Correlation for cholec ystitis. This can be further evaluated with ultrasound. 3. Hepatomegaly with diffuse fatty infiltration liver. 4. Small amount of free fluid in the pelvis. 5. Normal appendix in the right lower quadrant. 6. Gastrostomy tube with tip in the distal duodenum crossing into the proximal jejunum. Notified Scottie Khan DO at 09/29/2021 9:04 AM.
[2021-09-29 08:17] LABS: Alanine Aminotransferase 11 U/L (0-33); Albumin Level 2.2 g/dL (3.5-5.2); Alkaline Phosphatase 88 IU/L (35-105); Anion Gap 11.8 (5-19); Aspartate Amino Transferase 10 U/L (0-32); Blood Urea Nitrogen 38 mg/dL (6-20); Carbon Dioxide 26 mmol/L (22-29); Chloride 130 mmol/L (98-107); Creatine Phosphokinase 23 U/L (26-192); Globulin 3.6 g/dL (1.3-4.6); Glomerular Filtration Rate 92.7 mL/min (90-130); Glucose 69 mg/dL (65-115); Osmolality Calculated 345 mOsm/kg (285-295); Potassium 3.8 mmol/L (3.5-5.1); Total Bilirubin 0.2 mg/dL (0.15-1.2); Total Protein 5.8 g/dL (6.6-8.7)
[2021-09-29 08:25] LABS: ABG PCO2 50.7 mmHg (35-45); ABG PH Result 7.36 (7.35-7.45); Alveolar-Arterial Oxygen Gradi 0.5 mmHg (5-10); Arterial Blood Gas Hematocrit 33.7 % (37-47); Base Excess ABG 2.6 mmol/L (-2.0-2.0); Blood Gas Allen Test Pos; Blood Gas Sample Site Radial, right; Blood Gas Sample Type Arterial; HCO3 ABG 28.8 mmol/L (22-26); HGB O2 Sat 94.3 % (95-100); Ionized Calcium Level - ABG 1.3 mmol/L (1.1-1.4); Methemoglobin 0.9 % (0.4-1.5); Oxygen Device NC; Oxygen Saturation ABG 96.2; Potassium Level - ABG 3.6 mmol/L (3.5-5.0)
[2021-09-29 08:31] LABS: Slide Review Slide Review Perform
[2021-09-29] MEDS: iohexol 300 mg/mL 100 mL Btl IV (08:31)
[2021-09-29 08:33] LABS: Sodium 164 mmol/L (136-145)
--- NOTE | 2021-09-29 08:45 | PC.NURSE ---
Critical Sodium [address] Khan.
--- NOTE | 2021-09-29 09:05 | US_ITS ---
WS: [id number] ULTRASOUND ABDOMEN LIMITED CLINICAL INFORMATION: cholelithiasis, thickened GB wall COMPARISON: CT September 29, 2021 FINDINGS: Gastrostomy tube Liver Size: Mild hepatomegaly Craniocaudal length: 16.4 cm. Echogenicity: Coarse Surface nodularity: None. Mass (size and location): None. Bile ducts Intrahepatic ducts: Normal. Common bile duct diameter: 0.5 cm. Gallbladder is somewhat contracted Cholelithiasis with mild wall thickening. Gallstones: Present Gallbladder sludge: None. Gallbladder wall thickenin.5 mm Pericholecystic fluid: None.. Pancreas Obscured by feeding tube and dressing Right kidney: Normal. Hydronephrosis: None. Size: 10.2 cm x 4.5 cm x 4.3 cm. Abdominal aorta and IVC Visualized portions are normal. Ascites: None. US/US gall bladder [id number] IMPRESSION: 1. Mild hepatomegaly with diffuse fatty infiltration. 2. Mild gallbladder wall thickening although Gallbladder somewhat contracted. Prominent shadowing gallstone measuring 16 mm. No pericholecystic fluid or connie a to definitely indicate acute cholecystitis. Recommend correlation for biliary colic. Gallbladder function could be followed up with HIDA scan. 3. Normal common bile duct. 4. No hydronephrosis in right kidney.
[2021-09-29 09:24] LABS: Add Urine Microscopic? NO; Charge for UA Resulting for Rev
[2021-09-29 09:26] LABS: Lactic Sepsis W/Reflex 1.7 mmol/L (0.5-2.2)
[2021-09-29 09:28] LABS: Bilirubin Urine Neg (Negative); Blood Urine Neg (Negative); Glucose Urine UA Norm (Normal); Ketones Urine Negative (Negative); Leukocyte Esterase Urine Negative (Negative); Nitrate Urine Negative (Negative); Protein Urine Neg (Negative); Urine Appearance Clear (CLEAR); Urine Color Yellow (Yellow); Urobilinogen Urine Norm (Negative); pH Urine 7 (5-7)
[2021-09-29] MEDS: piperacillin-tazobactam 3.375 GM in sodium chloride 0.9% (plus) 50 ML IV ×2 (09:30→20:33)
[2021-09-29] MEDS: vancomycin 1,000 MG in sodium chloride 0.9% 250 ML 250 MG IV (10:47)
--- NOTE | 2021-09-29 11:09 | PC.PHAR ---
pt is from [facility]-miguel nurse from [facility] states the pt had keppra,valproate and levaquin today
--- NOTE | 2021-09-29 11:16 | PC.NURSE ---
Report called to floor, given to KAROLINE ELLIOTT
--- NOTE | 2021-09-29 11:49 | P.HP_ITS ---
Providers/Chief Complaint Admitting Physician: Kalpana Sultana MD Primary Care Provider: Michael Stokes MD Chief Complaint: N/V/ LOW O2 SATS/ HTN History of Present Illness Adilene Cordova is a 41 year old female who was recently discharged on 09/20 after management of sepsis related to UTI, (history of cerebral palsy, has a legal guardian, extensive extremity contractures, dysphagia status post PEG tube placement, )she was discharged on p.o. Levaquin, today she came back from [facility]. Chief complaint of possible aspiration. I called [facility] to get the report. Nurse was able to tell me that in last few days there was no fever, she does eat grilled cheese sandwich via her mouth otherwise she gets Isosource at 55 mL/h, 250 mL water flushes every 4 hours and 150 mL water flushes with the medication, today when nurse flushed her after giving medications she started sp itting fluid and then she sounded congested, they were able to noticed rattling sound. Because of concern for aspiration pneumonia she was sent to the hospital for further evaluation. In the ER x-ray clearly shows right middle lobe pneumonia consistent with aspiration pneumonia, gallbladder wall thickening however no signs of acute cholecystitis, she is afebrile, no severe leukocytosis, I will keep her n.p.o. start Zosyn, start D5 for hypernatremia, will give her albumin for hypotension, check sodium level later today She is requiring oxygen which is new currently on 4 L nasal cannula Review of Systems General: Reports: ROS unobtainable due to medical condition Medications/Allergies Home Medications Medication Instructions Recorded Confirmed Last Taken Type B1 0.5 mg-B2 0.6 mg-B3 7 mg-B6 0.7 30 ml PO DAILY@08 01/13/20 09/29/21 07/04/21 History [id number] oral elixir baclofen 10 mg tablet 10 mg PO BID@01/13/20 09/29/21 07/04/21 History bisacodyl 10 mg rectal suppository 10 mg NC DAILY PRN 01/13/20 09/29/21 07/04/21 History desmopressin 0.2 mg tablet 0.2 mg PO BID@01/13/20 09/29/21 07/04/21 History gabapentin 300 mg capsule 300 mg PO BID@,01/13/20 09/29/21 07/04/21 History magnesium hydroxide 400 mg/5 mL 30 ml PO DAILY PRN ml 01/13/20 09/29/21 07/04/21 History oral suspension ondansetron HCl 4 mg tablet 4 mg PO QID PRN 01/13/20 09/29/21 07/04/21 History venlafaxine 75 mg tablet 75 mg PO DAILY@08 01/13/20 09/29/21 07/04/21 History zonisamide 100 mg capsule 200 mg PO DAILY@08 cap 01/13/20 09/29/21 07/04/21 History Fleet Enema 118 ml NC DAILY PRN 10/17/20 09/29/21 07/04/21 History Tylenol 650mg 20 ml PO QID PRN 10/17/20 09/29/21 07/04/21 History levetiracetam 1,000 mg PO BID@,10/17/20 09/29/21 09/29/21 History celecoxib [Celebrex] 200 mg PO DAILY@09/17/21 09/29/21 Unknown History levothyroxine 25 mcg FEEDING TUBE DAILY@0500 09/17/21 09/29/21 Unknown History valproic acid (as sodium salt) 500 mg PO TID@,,09/17/21 09/29/21 09/29/21 History levofloxacin 750 mg FEEDING TUBE Q24H 14 Days 09/20/21 09/29/21 09/29/21 Rx #14 tab acetaminophen [Tylenol] 650 mg PO BID@,09/29/21 09/29/21 Unknown History camphor-menthol [Biofreeze] See Rx Instructions .ROUTE .COMPLEX 09/29/21 09/29/21 Unknown History lactose-reduced food with fibr See Rx Instructions .ROUTE .COMPLEX 09/29/21 09/29/21 Unknown History [Isosource 1.5 Asaf] Allergies Allergy/AdvReac Type Severity Reaction Status Date / Time No Known Allergies Allergy Verified 08/15/21 12:11 PFSH Acute PFSH: Medical History (Updated 09/29/21 @ 12:24 by Scottie Khan DO) Cerebral palsy History of seizure disorder HTN (hypertension) Hypothyroidism, unspecified Surgical History (Updated 09/29/21 @ 11:53 by Kalpana Sultana MD) S/P percutaneous endoscopic gastrostomy (PEG) tube placement Family History (Updated 09/29/21 @ 11:51 by Kalpana Sultana MD) Other Family history non-contributory Social History (Updated 09/29/21 @ 11:51 by Kalpana Sultana MD) Smoking and tobacco status: unknown if ever smoked Alcohol intake: unknown Substance/Drug Use: unknown Housing: Jail Vitals/I&O/Wt Last Vital Signs Temp 97 F L 09/29/21 07:46 Pulse 71 09/29/21 08:04 Resp 14 09/29/21 08:04 BP 92/56 09/29/21 08:04 Pulse Ox 93 09/29/21 08:04 09/28/21 09/29/21 09/29/21 22:59 06:59 14:59 Intake Total 50 / 50 Balance 50 / 50 Weight last 48 hrs Weight 40.823 kg Physical Exam Narrative: EXAM NARRATIVE: Patient was cornered in her bed Saturating well on 4 L nasal cannula Clinical signs of dehydration Gum hyperplasia Able to answer yes and no, she asked me if she could have PEG tube with mild drainage around insertion site No signs of cellulitis Extremity contractures Neuro exam limited Abdomen tender to palpation Data : 09/29/21 07:53 09/29/21 07:53 Micro: Microbiology 09/29/21 08:50 Blood Culture - Preliminary Blood SPECIMEN COLLECTED A&P Assessment and plan (1) S/P percutaneous endoscopic gastrostomy (PEG) tube placement: Status: Acute (2) Hypernatremia: Status: Acute (3) Aspiration pneumonia: Status: Acute (4) Hypoalbuminemia: Status: Acute (5) Malnourished: Status: Acute (6) Acute respiratory failure with hypoxia: Status: Acute Additional A&P Information Acute hypoxia Hypernatremia Aspiration pneumonia Hypoalbuminemia Deconditioning Malnourished Valproic acid, gum hyperplasia Start Zosyn antibiotic received vancomycin and Zosyn in the ER Currently requiring 4 L nasal cannula secondary to aspiration pneumonia We will keep her n.p.o., start Jevity tube feed, would recommend decreasing water flushes after medication Keep her upright, boluses instead of continuous feed to prevent further episode of aspiration pneumonia Continue D5 for hypernatremia check sodium level later today IV albumin for next 48 hours because of hypotension low BMI and albumin less than 3 Patient does answer questions in simple yes and no DNR/DNI DVT prophylaxis: Lovenox Tube feed diet, will ask for dietary recommendations for bolus feeding Attestations Medical Necessity Statement*: Greater than 2 midnights anticipated Time Spent in Patient Care: Greater than 35 minutes Coding Level of Care Code Acute Reinforcing Rod Layer for g Fwd Diagnoses S/P percutaneous endoscopic gastrostomy (PEG) tube placement Z93.1 Hypernatremia E87.0 Aspiration pneumonia J69.0 Hypoalbuminemia E88.09 Malnourished E46 Acute respiratory failure with hypoxia J96.01
[2021-09-29] MEDS: dextrose 5%-sod chloride 0.45% 1,000 ML 75 ML IV ×2 (12:09→12:19)
[2021-09-29 12:45] LABS: Procalcitonin 0.21 ng/mL (0-0.5)
[2021-09-29 12:53] LABS: Adenovirus Not Detected (NOT DETECT); Chlamydia Pneumoniae Not Detected (NOT DETECT); Coronavirus 229E,HKU1,NL63,OC4 Not Detected (NOT DETECT); Human Metapneumovirus Not Detected (NOT DETECT); Human Rhinovirus/Enterovirus Not Detected (NOT DETECT); Influenza A Not Detected (NOT DETECT); Influenza A H1 Not Detected (NOT DETECT); Influenza A H1-2009 Not Detected (NOT DETECT); Influenza A H3 Not Detected (NOT DETECT); Influenza B Not Detected (NOT DETECT); Mycoplasma Pneumoniae Not Detected (NOT DETECT); Parainfluenza Virus Type 1 Not Detected (NOT DETECT); Parainfluenza Virus Type 2 Not Detected (NOT DETECT); Parainfluenza Virus Type 3 Not Detected (NOT DETECT); Parainfluenza Virus Type 4 Not Detected (NOT DETECT); Respiratory Syncytial Virus A Not Detected (NOT DETECT); Respiratory Syncytial Virus B Not Detected (NOT DETECT); SARS-COV-2 Not Detected (NOT DETECT)
[2021-09-29] MEDS: dextrose 5% 1,000 ML 75 ML IV (13:31)
[2021-09-29] MEDS: ipratropium-albuterol 3 mL Neb INHALATION ×2 (13:44→20:12)
[2021-09-29 15:47] LABS: Sodium 159 mmol/L (136-145)
[2021-09-29] MEDS: valproic acid 250 mg/5 mL UDC 500 MG PO ×2 (16:00→20:32)
[2021-09-29] MEDS: pantoprazole 40 mg SDV IVP (17:12)
[2021-09-29] MEDS: baclofen 10 mg Tablet PO (20:32)
[2021-09-29] MEDS: ondansetron 2 mg/ML SDV 2 mL 4 MG IVP (21:40)
[2021-09-30] VITALS (23 sets, daily range): BP systolic 76–99; BP diastolic 47–60; PULSE 67–93; RESP 14–21; TEMP 36.4–36.9; O2SAT 90–96
[2021-09-30] MEDS: dextrose 5% 1,000 ML 75 ML IV (03:34)
[2021-09-30] MEDS: piperacillin-tazobactam 3.375 GM in sodium chloride 0.9% (plus) 50 ML IV ×3 (03:34→21:12)
[2021-09-30 03:58] LABS: Basophils % 0.4 %; Eosinophils # 0.2 10^3/uL (0.0-0.8); Hematocrit 27.1 % (37.0-47.0); Hemoglobin 8.1 g/dL (11.5-15.3); Lymphocytes % 13.4 %; Mean Corpuscular HGB Conc 29.9 g/dL (30.0-36.0); Mean Corpuscular Hemoglobin 33.1 pg (28.0-34.0); Mean Corpuscular Volume 110.6 fl (81-99); Mean Platelet Volume 11.5 fL (7.4-10.4); Monocytes # 0.5 10^3/uL (0.2-0.9); Monocytes % 6.8 %; Neutrophils # 5.26 10^3/uL (1.8-7.7); Neutrophils % 72.2 %; Nucleated Red Blood Cells # 0.1 /100WBC; Nucleated Red Blood Cells % 1.2 %; Platelet Count 238 10^3/cmm (130-400); Red Blood Count 2.45 10^6/uL (4.1-5.3); Red Cell Distribution Width 17.1 % (12.1-15.1); White Blood Count 7.3 10^3/uL (4.0-10.0)
[2021-09-30 04:27] LABS: Alanine Aminotransferase 9 U/L (0-33); Albumin Level 2.7 g/dL (3.5-5.2); Alkaline Phosphatase 87 IU/L (35-105); Blood Urea Nitrogen 24 mg/dL (6-20); C Reactive Protein 68.2 mg/L (0.0-4.9); Calcium 7.8 mg/dL (8.5-10.5); Carbon Dioxide 23 mmol/L (22-29); Chloride 126 mmol/L (98-107); Glomerular Filtration Rate 92.7 mL/min (90-130); Glucose 148 mg/dL (65-115); Magnesium 2.5 mg/dL (1.7-2.3); Osmolality Calculated 337 mOsm/kg (285-295); Sodium 160 mmol/L (136-145); Total Bilirubin 0.2 mg/dL (0.15-1.2); Total Protein 5.7 g/dL (6.6-8.7)
[2021-09-30 04:55] LABS: Anion Gap 14.7 (5-19); Aspartate Amino Transferase 14 U/L (0-32); Potassium 3.7 mmol/L (3.5-5.1)
[2021-09-30] MEDS: levothyroxine 25 mcg Tablet PEG-TUBE (05:39)
[2021-09-30] MEDS: ipratropium-albuterol 3 mL Neb INHALATION (08:06)
[2021-09-30] MEDS: pantoprazole 40 mg SDV IVP ×2 (08:11→17:04)
[2021-09-30] MEDS: venlafaxine 75 mg Tablet PO (08:12)
[2021-09-30] MEDS: baclofen 10 mg Tablet PO ×2 (08:12→21:11)
[2021-09-30] MEDS: valproic acid 250 mg/5 mL UDC 500 MG PO ×3 (08:12→21:11)
[2021-09-30] MEDS: zonisamide 100 MG Capsule 200 MG PO (08:20)
--- NOTE | 2021-09-30 13:02 | PM.PN ---
Subjective Subjective: Interval history: Na today 160 , continue D5, she is currently on tube feeding at 50 mm/h with water flushes Vitals/I&O/Wt Last Vital Signs Temp 97 F L 09/29/21 07:46 Pulse 90 09/30/21 12:00 Resp 17 09/30/21 12:00 BP 85/47 09/30/21 12:00 Pulse Ox 90 09/30/21 12:00 09/29/21 09/30/21 09/30/21 22:59 06:59 14:59 Intake Total 450 / 562.5 3119 / 3681.5 150 / 150 Balance 450 / 562.5 3119 / 3681.5 150 / 150 Weight last 48 hrs Weight 40.823 kg Weight 40.823 kg Physical Exam Narrative: EXAM NARRATIVE: Clinically dehydrated She was asking for water Able to answer my question appropriately Some discharge from the PEG tube insertion however no active synovitis, extremity contractures Limited neuro exam No active signs of respiratory distress Saturating well on 2 L nasal cannula Data : 09/30/21 02:34 09/30/21 02:34 Micro: Microbiology 09/29/21 08:50 Blood Culture - Preliminary Blood NEGATIVE TO DATE 09/29/21 08:20 Blood Culture - Preliminary Blood SPECIMEN COLLECTED A&P Assessment and plan (1) Aspiration pneumonia: Status: Acute (2) Malnourished: Status: Acute (3) Hypoalbuminemia: Status: Acute (4) Hypernatremia: Status: Acute (5) S/P percutaneous endoscopic gastrostomy (PEG) tube placement: Status: Acute (6) Cerebral palsy: Status: Acute (7) HTN (hypertension): Status: Acute (8) Hypothyroidism, unspecified: Status: Acute (9) History of seizure disorder: Status: Acute Additional A&P Information Aspiration pneumonia Hypernatremia Dehydration Acute hypoxia related to aspiration pneumonia Continue D5 with water flushes and tube feeding at 50 mL/h She has been afebrile White count 7.3 Sodium 160, 4 L water deficit Afebrile Transfer out of ICU Not requiring any vasopressors Her blood pressure chronically stays in 90s Patient was asking for water, Continue Zosyn continue Keppra Attestations Medical Necessity Statement*: Transfer out of ICU Time Spent in Patient Care: less than 15 minutes Coding Level of Care Code 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
--- NOTE | 2021-09-30 15:28 | PC.NURSE ---
Dressing to PEG tube changed with zinc oxide and duoderm applied. Patient tolerated with no difficulties.
--- NOTE | 2021-09-30 16:42 | PC.NURSE ---
Report given to KAROLINE Ramirez and patient transferred via bed to [facility].
[2021-10-01] VITALS (10 sets, daily range): BP systolic 92–109; BP diastolic 60–72; PULSE 71–91; RESP 16–24; TEMP 36.3–36.9; O2SAT 92–97
[2021-10-01] MEDS: piperacillin-tazobactam 3.375 GM in sodium chloride 0.9% (plus) 50 ML IV ×2 (03:37→11:28)
[2021-10-01] MEDS: levothyroxine 25 mcg Tablet PEG-TUBE (04:25)
[2021-10-01 06:29] LABS: Hematocrit 29.5 % (37.0-47.0); Hemoglobin 8.9 g/dL (11.5-15.3); Mean Corpuscular HGB Conc 30.2 g/dL (30.0-36.0); Mean Corpuscular Hemoglobin 32.6 pg (28.0-34.0); Mean Corpuscular Volume 108.1 fl (81-99); Mean Platelet Volume 11.1 fL (7.4-10.4); Platelet Count 307 10^3/cmm (130-400); Red Blood Count 2.73 10^6/uL (4.1-5.3); Red Cell Distribution Width 16.4 % (12.1-15.1); White Blood Count 8.1 10^3/uL (4.0-10.0)
[2021-10-01 06:54] LABS: Blood Urea Nitrogen 15 mg/dL (6-20); Calcium 7.8 mg/dL (8.5-10.5); Carbon Dioxide 26 mmol/L (22-29); Chloride 116 mmol/L (98-107); Glomerular Filtration Rate 110.7 mL/min (90-130); Glucose 113 mg/dL (65-115); Osmolality Calculated 318 mOsm/kg (285-295); Sodium 153 mmol/L (136-145)
[2021-10-01 07:38] LABS: Slide Review Slide Review Perform
[2021-10-01 07:50] LABS: Eosinophils 6 %; Hypochromasia Trace; Lymphocytes 25 %; Poikilocytosis Trace; Segmented Neutrophils 51 %; Total Cells Counted 100 (0-100)
[2021-10-01 07:51] LABS: Anisocytosis 1+; Macrocytosis 1+; Platelet Estimate Normal (Normal); Smudge Cells Trace
[2021-10-01] MEDS: zonisamide 100 MG Capsule 200 MG PO (09:28)
[2021-10-01] MEDS: pantoprazole 40 mg SDV IVP ×2 (09:28→16:51)
[2021-10-01] MEDS: baclofen 10 mg Tablet PO ×2 (09:34→20:32)
[2021-10-01] MEDS: venlafaxine 75 mg Tablet PO (09:34)
[2021-10-01] MEDS: valproic acid 250 mg/5 mL UDC 500 MG PO ×3 (09:53→20:32)
[2021-10-01] MEDS: dextrose 5% 1,000 ML 75 ML IV (11:17)
--- NOTE | 2021-10-01 14:43 | P.PN_ITS ---
Subjective Subjective: Interval history: Improvement in sodium, this morning she was saturating well on room air 95% Continue D5 Patient was complaining abdominal pain for which I gave her Dilaudid she has DuoDERM and topical zinc oxide around PEG tube site Vitals/I&O/Wt Last Vital Signs Temp 97.4 F L 10/01/21 08:00 Pulse 79 10/01/21 09:21 Resp 17 10/01/21 09:21 BP 92/62 10/01/21 08:00 Pulse Ox 92 10/01/21 09:21 09/30/21 10/01/21 10/01/21 22:59 06:59 14:59 Intake Total 50 / 200 714.25 / 914.25 585.75 / 585.75 Balance 50 / 200 714.25 / 914.25 585.75 / 585.75 Physical Exam Narrative: EXAM NARRATIVE: Patient was boosted up in her bed Saturating well on room air DuoDERM with zinc oxide around the PEG tube insertion site PEG tube insertion site looks dry today She was able to tell me that she is hurting around PEG insertion site Breathing without respiratory distress on room air Extremity contractures Clinically dehydrated Gum hyperplasia noted Data : 10/01/21 05:57 10/01/21 05:57 Micro: Microbiology 09/29/21 08:20 Blood Culture - Preliminary Blood NEGATIVE TO DATE 09/29/21 08:50 Blood Culture - Preliminary Blood NEGATIVE TO DATE A&P Assessment and plan (1) Pneumonia: Status: Acute (2) Hypoalbuminemia: Status: Acute (3) Malnourished: Status: Acute (4) Aspiration pneumonia: Status: Acute (5) Hypernatremia: Status: Acute (6) S/P percutaneous endoscopic gastrostomy (PEG) tube placement: Status: Acute (7) History of seizure disorder: Status: Acute (8) Hypothyroidism, unspecified: Status: Acute (9) Cerebral palsy: Status: Acute Additional A&P Information Aspiration pneumonia Hypernatremia Malnourished Low blood pressure, chronic Plan to continue D5 IV fluids for now sodium improving Tube feeding running at 50 mL/h Plan to discharge her once sodium less than 145 Aspiration pneumonia not requiring oxygen today, plan to discharge her on Aug entin DNR/DNI DVT prophylaxis on board Attestations Medical Necessity Statement*: Continue medical management Time Spent in Patient Care: less than 15 minutes Coding Level of Care Code 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
[2021-10-01] MEDS: amoxicillin-clav 875-125 mg Tablet 1 TAB PEG-TUBE (16:50)
[2021-10-02] VITALS (9 sets, daily range): BP systolic 99–103; BP diastolic 63–71; PULSE 77–89; RESP 17–18; TEMP 36.4–37; O2SAT 92–98
[2021-10-02] MEDS: dextrose 5% 1,000 ML 75 ML IV ×2 (04:08→17:20)
[2021-10-02] MEDS: levothyroxine 25 mcg Tablet PEG-TUBE (04:11)
[2021-10-02 05:42] LABS: Hematocrit 32.3 % (37.0-47.0); Hemoglobin 9.6 g/dL (11.5-15.3); Mean Corpuscular HGB Conc 29.7 g/dL (30.0-36.0); Mean Corpuscular Hemoglobin 32.8 pg (28.0-34.0); Mean Corpuscular Volume 110.2 fl (81-99); Mean Platelet Volume 11.1 fL (7.4-10.4); Platelet Count 300 10^3/cmm (130-400); Red Blood Count 2.93 10^6/uL (4.1-5.3); Red Cell Distribution Width 16.9 % (12.1-15.1)
[2021-10-02 06:04] LABS: Anion Gap 15.2 (5-19); Blood Urea Nitrogen 15 mg/dL (6-20); Calcium 8.8 mg/dL (8.5-10.5); Carbon Dioxide 26 mmol/L (22-29); Chloride 119 mmol/L (98-107); Glomerular Filtration Rate 110.7 mL/min (90-130); Glucose 95 mg/dL (65-115); Osmolality Calculated 323 mOsm/kg (285-295); Potassium 4.2 mmol/L (3.5-5.1); Sodium 156 mmol/L (136-145)
[2021-10-02 06:11] LABS: Slide Review Slide Review Perform
[2021-10-02 06:13] LABS: Basophils % 0.2 %; Eosinophils # 0.2 10^3/uL (0.0-0.8); Eosinophils % 2.1 %; Lymphocytes # 1.4 10^3/uL (0.8-4.8); Lymphocytes % 15.2 %; Monocytes # 0.9 10^3/uL (0.2-0.9); Monocytes % 9.6 %; Neutrophils # 5.09 10^3/uL (1.8-7.7); Neutrophils % 56.5 %; Nucleated Red Blood Cells # 0.1 /100WBC; Nucleated Red Blood Cells % 0.9 %
[2021-10-02] MEDS: amoxicillin-clav 875-125 mg Tablet 1 TAB PEG-TUBE ×2 (09:09→17:10)
[2021-10-02] MEDS: pantoprazole 40 mg SDV IVP ×2 (09:09→17:10)
[2021-10-02] MEDS: baclofen 10 mg Tablet PO ×2 (09:09→22:47)
[2021-10-02] MEDS: venlafaxine 75 mg Tablet PO (09:09)
[2021-10-02] MEDS: valproic acid 250 mg/5 mL UDC 500 MG PO ×3 (09:09→22:46)
[2021-10-02] MEDS: zonisamide 100 MG Capsule 200 MG PO (09:11)
--- NOTE | 2021-10-02 14:07 | PC.SOCIAL ---
Pg 2 IMM Explained to S.O. staff, EL Juarez. No questions voiced. Provided pt a copy. Initialed, dated, & timed a copy & placed in chart.
--- NOTE | 2021-10-02 17:33 | PM.PN ---
Subjective Subjective: Interval history: NoSeen this morning. Sodium still at 156. She currently has D5 running at 75 cc/h. Events reported by nurse from overnight. She does have an erythematous rash on her groin buttock area. Vitals/I&O/Wt Last Vital Signs Temp 98.0 F 10/02/21 16:00 Pulse 89 10/02/21 16:00 Resp 18 10/02/21 16:00 BP 99/63 10/02/21 16:00 Pulse Ox 92 10/02/21 16:00 10/02/21 10/02/21 10/02/21 06:59 14:59 22:59 Intake Total 600 / 1835.75 990 / 990 Balance 600 / 1835.75 990 / 990 Physical Exam Narrative: EXAM NARRATIVE: Patient was boosted up in her bed Saturating well on room air DuoDERM with zinc oxide around the PEG tube insertion site PEG tube insertion site looks dry today She was able to tell me that she is hurting around PEG insertion site Breathing without respiratory distress on room air Extremity contractures Clinically dehydrated Gum hyperplasia noted Erythematous rash present on buttock area?we will be applying zinc oxide cream. Data : 10/02/21 05:12 10/02/21 05:12 A&P Assessment and plan (1) Pneumonia: Status: Acute (2) Hypoalbuminemia: Status: Acute (3) Malnourished: Status: Acute (4) Aspiration pneumonia: Status: Acute (5) Hypernatremia: Status: Acute (6) S/P percutaneous endoscopic gastrostomy (PEG) tube placement: Status: Acute (7) History of seizure disorder: Status: Acute (8) Hypothyroidism, unspecified: Status: Acute (9) Cerebral palsy: Status: Acute Additional A&P Information Aspiration pneumonia Hypernatremia Malnourished Low blood pressure, chronic Plan to continue D5 IV fluids for now sodium improving. Sodium is 156 today. We will keep on 75 cc/h and check tomorrow morning. Tube feeding running at 50 mL/h Plan to discharge her once sodium less than 145 Aspiration pneumonia not requiring oxygen today, plan to discharge her on Augmentin DNR/DNI DVT prophylaxis on board Attestations Medical Necessity Statement*: Greater than 48-hour stay for correction of hypernatremia. 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 Fwd Diagnoses Pneumonia J18.9 Hypoalbuminemia E88.09 Malnourished E46 Aspiration pneumonia J69.0 Hypernatremia E87.0 S/P percutaneous endoscopic gastrostomy (PEG) tube placement Z93.1 History of seizure disorder Z86.69 Hypothyroidism, unspecified E03.9 Cerebral palsy G80.9
[2021-10-03] VITALS (11 sets, daily range): BP systolic 89–104; BP diastolic 64–73; PULSE 79–90; RESP 16–20; TEMP 36.4–37; O2SAT 92–99
--- NOTE | 2021-10-03 01:37 | PC.NURSE ---
1999 resting in bed. No distress. Turned for comfort. PEG tube feedings in use.
--- NOTE | 2021-10-03 01:38 | PC.NURSE ---
2200 Awakens easily. No distress.
--- NOTE | 2021-10-03 01:38 | PC.NURSE ---
0100 Awakens easily. Turned and pericare given. Zinc ointment to periarea redness.
[2021-10-03] MEDS: levothyroxine 25 mcg Tablet PEG-TUBE (05:14)
[2021-10-03 05:47] LABS: Basophils # 0.1 10^3/uL (0.0-0.1); Basophils % 0.5 %; Eosinophils # 0.2 10^3/uL (0.0-0.8); Eosinophils % 2.2 %; Hematocrit 34.3 % (37.0-47.0); Hemoglobin 10.6 g/dL (11.5-15.3); Lymphocytes # 1.8 10^3/uL (0.8-4.8); Lymphocytes % 17.7 %; Mean Corpuscular HGB Conc 30.9 g/dL (30.0-36.0); Mean Corpuscular Hemoglobin 33.3 pg (28.0-34.0); Mean Corpuscular Volume 107.9 fl (81-99); Mean Platelet Volume 11.2 fL (7.4-10.4); Monocytes % 10.1 %; Neutrophils # 5.22 10^3/uL (1.8-7.7); Neutrophils % 52.6 %; Nucleated Red Blood Cells # 0.1 /100WBC; Nucleated Red Blood Cells % 1.2 %; Platelet Count 281 10^3/cmm (130-400); Red Blood Count 3.18 10^6/uL (4.1-5.3); Red Cell Distribution Width 17.3 % (12.1-15.1); White Blood Count 9.9 10^3/uL (4.0-10.0)
[2021-10-03 06:00] LABS: Blood Urea Nitrogen 18 mg/dL (6-20); Calcium 8.9 mg/dL (8.5-10.5); Carbon Dioxide 25 mmol/L (22-29); Chloride 115 mmol/L (98-107); Glomerular Filtration Rate 136.6 mL/min (90-130); Glucose 115 mg/dL (65-115); Magnesium 2.4 mg/dL (1.7-2.3); Osmolality Calculated 315 mOsm/kg (285-295); Sodium 151 mmol/L (136-145)
[2021-10-03 06:03] LABS: Anion Gap 15.4 (5-19); Potassium 4.4 mmol/L (3.5-5.1)
[2021-10-03] MEDS: dextrose 5% 1,000 ML 75 ML IV ×2 (06:47→20:54)
[2021-10-03 08:02] LABS: Slide Review Slide Review Perform
[2021-10-03] MEDS: venlafaxine 75 mg Tablet PO (09:47)
[2021-10-03] MEDS: zonisamide 100 MG Capsule 200 MG PO (09:47)
[2021-10-03] MEDS: amoxicillin-clav 875-125 mg Tablet 1 TAB PEG-TUBE ×2 (09:47→18:27)
[2021-10-03] MEDS: pantoprazole 40 mg SDV IVP ×2 (09:50→18:27)
[2021-10-03] MEDS: baclofen 10 mg Tablet PO ×2 (09:50→21:30)
[2021-10-03] MEDS: valproic acid 250 mg/5 mL UDC 500 MG PO ×3 (09:58→21:29)
--- NOTE | 2021-10-03 10:38 | PC.NURSE ---
Flushed feeding tube with 50ml of water after administration of medications.
--- NOTE | 2021-10-03 10:46 | PC.NURSE ---
writer technical publications notified Dr Mcneill that patient vomited after morning meds. Medications were administered through feeding tube.
--- NOTE | 2021-10-03 12:35 | PM.PN ---
Subjective Subjective: Interval history: Seen this morning. Nursing staff reported that patient vomited after taking her medications this morning. Sodium did appear better at 151 today. Vitals/I&O/Wt Last Vital Signs Temp 98.4 F 10/03/21 11:57 Pulse 90 10/03/21 11:57 Resp 17 10/03/21 11:57 BP 99/64 10/03/21 11:57 Pulse Ox 93 10/03/21 11:57 10/02/21 10/03/21 10/03/21 22:59 06:59 14:59 Intake Total 990 / 990 999 50 / 50 Balance 990 / 990 999 50 / 50 Physical Exam Narrative: EXAM NARRATIVE: Patient was boosted up in her bed Saturating well on room air DuoDERM with zinc oxide around the PEG tube insertion site PEG tube insertion site looks dry today She was not really able to tell me if she was hurting anywhere. I did ask her multiple times. She appeared comfortable today. Breathing without respiratory distress on room air Extremity contractures Clinically dehydrated Gum hyperplasia noted Erythematous rash present on buttock area?we will be applying zinc oxide cream. Data : 10/03/21 04:58 10/03/21 04:58 A&P Assessment and plan (1) Pneumonia: Status: Acute (2) Hypoalbuminemia: Status: Acute (3) Malnourished: Status: Acute (4) Aspiration pneumonia: Status: Acute (5) Hypernatremia: Status: Acute (6) S/P percutaneous endoscopic gastrostomy (PEG) tube placement: Status: Acute (7) History of seizure disorder: Status: Acute (8) Hypothyroidism, unspecified: Status: Acute (9) Cerebral palsy: Status: Acute Additional A&P Information Aspiration pneumonia Hypernatremia Malnourished Low blood pressure, chronic Plan to continue D5 IV fluids for now sodium improving. Sodium is 151 today. Increase fluids to 100 cc/h today. Increase Zofran to 8 mg daily. 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
--- NOTE | 2021-10-03 13:52 | PC.NURSE ---
notified Dr Mcneill that patient vomited again
[2021-10-03] MEDS: ondansetron 2 mg/ML SDV 2 mL 8 MG IVP (14:26)
[2021-10-04] VITALS (8 sets, daily range): BP systolic 89–101; BP diastolic 50–65; PULSE 78–98; RESP 16–18; TEMP 36.5–36.7; O2SAT 90–94
--- NOTE | 2021-10-04 04:17 | PC.NURSE ---
0400 resting in bed. No distress. Awakens easily. PEG tube infusing Jevity via pump.
[2021-10-04] MEDS: levothyroxine 25 mcg Tablet PEG-TUBE (04:57)
[2021-10-04] MEDS: valproic acid 250 mg/5 mL UDC 500 MG PO ×3 (09:46→20:43)
[2021-10-04] MEDS: zonisamide 100 MG Capsule 200 MG PO (09:47)
[2021-10-04] MEDS: venlafaxine 75 mg Tablet PO (09:47)
[2021-10-04] MEDS: amoxicillin-clav 875-125 mg Tablet 1 TAB PEG-TUBE (09:48)
[2021-10-04] MEDS: baclofen 10 mg Tablet PO ×2 (09:48→20:43)
[2021-10-04] MEDS: pantoprazole 40 mg SDV IVP ×2 (09:48→18:54)
[2021-10-04] MEDS: dextrose 5% 1,000 ML 75 ML IV ×2 (10:33→23:26)
[2021-10-04 10:40] LABS: Hematocrit 32.7 % (37.0-47.0); Hemoglobin 10.2 g/dL (11.5-15.3); Mean Corpuscular HGB Conc 31.2 g/dL (30.0-36.0); Mean Corpuscular Hemoglobin 33.2 pg (28.0-34.0); Mean Corpuscular Volume 106.5 fl (81-99); Mean Platelet Volume 10.4 fL (7.4-10.4); Platelet Count 311 10^3/cmm (130-400); Red Blood Count 3.07 10^6/uL (4.1-5.3); Red Cell Distribution Width 16.5 % (12.1-15.1); White Blood Count 10.3 10^3/uL (4.0-10.0)
[2021-10-04 10:55] LABS: Slide Review Slide Review Perform
[2021-10-04 10:57] LABS: Absolute Eosinophils 0.3 10^3/cmm (0.0-0.7); Absolute Neutrophil 4.4 10^3/cmm (1.4-6.5); Absolute Segmented Neutrophil 2.2 10/cmm (1.6-7.1); Band Neutrophils Absolute 2.3 10^3/cmm (0.0-1.2); Eosinophils 3 %; Lymphocytes 23 %; Monocytes Absolute 1.8 10^3/cmm (0.1-0.6); Platelet Estimate Normal (Normal); Segmented Neutrophils 21 %; Total Cells Counted 100 (0-100)
[2021-10-04 10:58] LABS: Anion Gap 16.4 (5-19); Anisocytosis 2+; Blood Urea Nitrogen 15 mg/dL (6-20); Calcium 8.3 mg/dL (8.5-10.5); Carbon Dioxide 24 mmol/L (22-29); Chloride 106 mmol/L (98-107); Glomerular Filtration Rate 136.6 mL/min (90-130); Glucose 108 mg/dL (65-115); Lymphocytes Absolute 2.4 10^3/cmm (1.2-3.4); Macrocytosis 2+; Osmolality Calculated 295 mOsm/kg (285-295); Poikilocytosis Trace; Potassium 4.4 mmol/L (3.5-5.1); Sodium 142 mmol/L (136-145); Stomatocytes Trace
--- NOTE | 2021-10-04 11:13 | XR_ITS ---
WS: [id number] Portable AP upright chest, 10/04/2021 Clinical Data: Rule out aspiration Comparison: Portable chest, 09/29/2021. Findings: The patchy right hilar pulmonary opacity has cleared partly. The left lung remains clear. T he heart is normal. No pneumothorax is seen. No nodules, masses or effusions are present. Monitor dejan ds are on the chest wall. XR/XR chest 1V portable [id number] Impression: Partial clearing of patchy right hilar pulmonary opacity.
--- NOTE | 2021-10-04 11:14 | PM.PN ---
Subjective Subjective: Interval history: Seen this morning. She is awake and alert. She was able to say hi to me as well. He denies being in pain at this time. Sodium was 142. However she has a 22% bandemia today. Pt had 2 episodes of vomitting yesterday. I do have a suspicion she re-aspirated. We held feeds for some time as well. Nursing staff is working with pt and trying to keep her head elevated and follow aspiration precautions. Zinc oxide has been used for her buttock area but she complains of pain when used. We will add vaseline as barrier cream for soothing and alternate between zinc oxide and vaseline. Vitals/I&O/Wt Last Vital Signs Temp 97.7 F 10/04/21 08:00 Pulse 97 10/04/21 08:00 Resp 18 10/04/21 08:00 BP 93/60 10/04/21 08:00 Pulse Ox 91 10/04/21 08:00 10/03/21 10/04/21 10/04/21 22:59 06:59 14:59 Intake Total 4651 / 8935 1000 / 1000 Output Total Balance 4651 / 8935 -8929 999 / 999 Physical Exam Narrative: EXAM NARRATIVE: Patient was boosted up in her bed. Awake alert today and talking a little. She did say Hi to me. Saturating well on room air DuoDERM with zinc oxide around the PEG tube insertion site PEG tube insertion site looks dry today She appeared comfortable. Breathing without respiratory distress on room air Extremity contractures Appears euvolemic today. Gum hyperplasia noted Erythematous rash present on buttock area?zinc oxide present. Data : 10/04/21 10:27 10/04/21 10:27 Micro: Microbiology 09/29/21 08:50 Blood Culture - Final Blood NO GROWTH AFTER 5 DAYS A&P Assessment and plan (1) Pneumonia: Status: Acute (2) Hypoalbuminemia: Status: Acute (3) Malnourished: Status: Acute (4) Aspiration pneumonia: Status: Acute (5) Hypernatremia: Status: Acute (6) S/P percutaneous endoscopic gastrostomy (PEG) tube placement: Status: Acute (7) History of seizure disorder: Status: Acute (8) Hypothyroidism, unspecified: Status: Acute (9) Cerebral palsy: Status: Acute Additional A&P Information Aspiration pneumonia Hypernatremia Malnourished Low blood pressure, chronic Sodium 142 this AM. Will decrease fluids to 75 cc/hr for another day. Continue Zofran to 8 mg daily. Tube feeding running at 50 mL/h Plan to discharge her once sodium less than 145 which can be as early as today but pt re-aspirated most likely and has a bandemia today. Afebrile. Will hold oral augmentin and switch to zosyn. Not requiring Oxygen. Will monitor. Also will repeat XR to confirm aspiration. DNR/DNI DVT prophylaxis on board Attestations Medical Necessity Statement*: > 24 hours for IV antibiotics. 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
[2021-10-04] MEDS: piperacillin-tazobactam 3.375 GM in sodium chloride 0.9% (plus) 50 ML IV ×2 (12:14→18:40)
--- NOTE | 2021-10-04 12:48 | PC.SOCIAL ---
[facility] Updated Updated [facility] at [facility] on IMM. No questions voiced. Provided pt a copy. Initialed, dated, & timed copy in chart.
[2021-10-04 20:03] LABS: Glucose Point of Care 96 mg/dL (70-110)
[2021-10-05] VITALS (9 sets, daily range): BP systolic 92–149; BP diastolic 56–86; PULSE 79–93; RESP 17–20; TEMP 36.5–36.9; O2SAT 92–95
[2021-10-05] MEDS: piperacillin-tazobactam 3.375 GM in sodium chloride 0.9% (plus) 50 ML IV ×3 (03:44→18:18)
[2021-10-05] MEDS: levothyroxine 25 mcg Tablet PEG-TUBE (05:18)
[2021-10-05 06:37] LABS: Basophils % 0.4 %; Eosinophils # 0.3 10^3/uL (0.0-0.8); Eosinophils % 2.8 %; Hematocrit 33.1 % (37.0-47.0); Hemoglobin 10.5 g/dL (11.5-15.3); Lymphocytes # 1.7 10^3/uL (0.8-4.8); Lymphocytes % 16.2 %; Mean Corpuscular HGB Conc 31.7 g/dL (30.0-36.0); Mean Corpuscular Hemoglobin 32.8 pg (28.0-34.0); Mean Corpuscular Volume 103.4 fl (81-99); Mean Platelet Volume 10.9 fL (7.4-10.4); Monocytes # 1.2 10^3/uL (0.2-0.9); Monocytes % 11.7 %; Neutrophils # 5.03 10^3/uL (1.8-7.7); Neutrophils % 47.3 %; Nucleated Red Blood Cells # 0.1 /100WBC; Nucleated Red Blood Cells % 1.2 %; Platelet Count 281 10^3/cmm (130-400); White Blood Count 10.6 10^3/uL (4.0-10.0)
[2021-10-05 07:04] LABS: Anion Gap 16.5 (5-19); Blood Urea Nitrogen 16 mg/dL (6-20); Calcium 8.1 mg/dL (8.5-10.5); Carbon Dioxide 23 mmol/L (22-29); Chloride 100 mmol/L (98-107); Glomerular Filtration Rate 136.6 mL/min (90-130); Glucose 94 mg/dL (65-115); Magnesium 1.8 mg/dL (1.7-2.3); Osmolality Calculated 281 mOsm/kg (285-295); Potassium 4.5 mmol/L (3.5-5.1); Sodium 135 mmol/L (136-145)
[2021-10-05 07:38] LABS: Adenovirus Not Detected (NOT DETECT); Chlamydia Pneumoniae Not Detected (NOT DETECT); Coronavirus 229E,HKU1,NL63,OC4 Not Detected (NOT DETECT); Human Metapneumovirus Not Detected (NOT DETECT); Human Rhinovirus/Enterovirus Not Detected (NOT DETECT); Influenza A Not Detected (NOT DETECT); Influenza A H1 Not Detected (NOT DETECT); Influenza A H1-2009 Not Detected (NOT DETECT); Influenza A H3 Not Detected (NOT DETECT); Influenza B Not Detected (NOT DETECT); Mycoplasma Pneumoniae Not Detected (NOT DETECT); Parainfluenza Virus Type 1 Not Detected (NOT DETECT); Parainfluenza Virus Type 2 Not Detected (NOT DETECT); Parainfluenza Virus Type 3 Not Detected (NOT DETECT); Parainfluenza Virus Type 4 Not Detected (NOT DETECT); Respiratory Syncytial Virus A Not Detected (NOT DETECT); Respiratory Syncytial Virus B Not Detected (NOT DETECT); SARS-COV-2 Not Detected (NOT DETECT)
[2021-10-05 07:45] LABS: Slide Review Slide Review Perform
[2021-10-05] MEDS: baclofen 10 mg Tablet PO ×2 (09:42→21:17)
[2021-10-05] MEDS: valproic acid 250 mg/5 mL UDC 500 MG PO ×3 (09:42→21:17)
[2021-10-05] MEDS: venlafaxine 75 mg Tablet PO (09:42)
[2021-10-05] MEDS: zonisamide 100 MG Capsule 200 MG PO (09:43)
[2021-10-05] MEDS: pantoprazole 40 mg SDV IVP ×2 (09:43→18:18)
[2021-10-05] MEDS: ondansetron 2 mg/ML SDV 2 mL 8 MG IVP (10:23)
--- NOTE | 2021-10-05 11:27 | P.PN_ITS ---
Subjective Subjective: Interval history: Na 135 today. I have stopped D5 fluids. She coughed this morning and had an episode of vomitting due to coughing. SHe is awake alert and perky today. Watching cartoons when seen. Still has rash on buttocks area. No residual in feeds today. workforce staffing advisor is using zinc oxide and mixed with barrier cream for buttock area. Vitals/I&O/Wt Last Vital Signs Temp 97.7 F 10/05/21 08:00 Pulse 89 10/05/21 09:08 Resp 20 H 10/05/21 09:08 BP 97/59 10/05/21 08:00 Pulse Ox 95 10/05/21 09:08 10/04/21 10/05/21 10/05/21 22:59 06:59 14:59 Intake Total 50 / 1100 1076.25 / 2176.25 Balance 50 / 1099 1076.25 / 2175.25 Physical Exam Narrative: EXAM NARRATIVE: Patient was boosted up in her bed. Awake alert today Saturating well on room air DuoDERM with zinc oxide around the PEG tube insertion site PEG tube insertion site looks dry today She appeared comfortable. Breathing without respiratory distress on room air Extremity contractures Gum hyperplasia noted Erythematous rash present on buttock area?zinc oxide present. Data : 10/05/21 05:00 10/05/21 05:00 Micro: Microbiology 09/29/21 08:20 Blood Culture - Final Blood NO GROWTH AFTER 5 DAYS 09/29/21 08:50 Blood Culture - Final Blood NO GROWTH AFTER 5 DAYS A&P Assessment and plan (1) Pneumonia: Status: Acute (2) Hypoalbuminemia: Status: Acute (3) Malnourished: Status: Acute (4) Aspiration pneumonia: Status: Acute (5) Hypernatremia: Status: Acute (6) S/P percutaneous endoscopic gastrostomy (PEG) tube placement: Status: Acute (7) History of seizure disorder: Status: Acute (8) Hypothyroidism, unspecified: Status: Acute (9) Cerebral palsy: Status: Acute Additional A&P Information #Aspiration pneumonia #Hypernatremia #Malnourished #Low blood pressure, chronic #Buttock rash -Sodium 135 this AM. Will stop IV fluids. Continue Zofran to 8 mg daily. -Tube feeding running at 50 mL/h -Continue IV zosyn for another day. -WBC count and bandemia has resolved. -Plan to discharge back to shelter tomorrow after another day of IV antibiotics. Not requiring Oxygen. Will monitor. Continue to mix Vaseline and zinc oxide cream for buttock area. DNR/DNI DVT prophylaxis on board Attestations Medical Necessity Statement*: Requires another day of IV antibiotics. 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
[2021-10-06] VITALS (9 sets, daily range): BP systolic 72–99; BP diastolic 50–60; PULSE 77–85; RESP 16–19; TEMP 36.4–36.7; O2SAT 95–96
[2021-10-06] MEDS: piperacillin-tazobactam 3.375 GM in sodium chloride 0.9% (plus) 50 ML IV (02:52)
[2021-10-06 03:29] LABS: Hematocrit 31.9 % (37.0-47.0); Hemoglobin 10.3 g/dL (11.5-15.3); Mean Corpuscular HGB Conc 32.3 g/dL (30.0-36.0); Mean Corpuscular Hemoglobin 33.2 pg (28.0-34.0); Mean Corpuscular Volume 102.9 fl (81-99); Mean Platelet Volume 10.6 fL (7.4-10.4); Platelet Count 302 10^3/cmm (130-400); Red Cell Distribution Width 16.8 % (12.1-15.1); White Blood Count 8.8 10^3/uL (4.0-10.0)
[2021-10-06 03:44] LABS: Blood Urea Nitrogen 17 mg/dL (6-20); Calcium 8.9 mg/dL (8.5-10.5); Carbon Dioxide 22 mmol/L (22-29); Chloride 99 mmol/L (98-107); Glomerular Filtration Rate 136.6 mL/min (90-130); Glucose 82 mg/dL (65-115); Magnesium 1.8 mg/dL (1.7-2.3); Osmolality Calculated 277 mOsm/kg (285-295); Sodium 133 mmol/L (136-145)
[2021-10-06 03:47] LABS: Anion Gap 16.9 (5-19); Potassium 4.9 mmol/L (3.5-5.1)
[2021-10-06] MEDS: levothyroxine 25 mcg Tablet PEG-TUBE (04:49)
[2021-10-06 08:06] LABS: Slide Review Slide Review Perform
[2021-10-06 08:07] LABS: Absolute Eosinophils 0.4 10^3/cmm (0.0-0.7); Absolute Segmented Neutrophil 4.2 10/cmm (1.6-7.1); Band Neutrophils Absolute 0.1 10^3/cmm (0.0-1.2); Eosinophils 5 %; Lymphocytes 27 %; Lymphocytes Absolute 2.4 10^3/cmm (1.2-3.4); Monocytes Absolute 0.7 10^3/cmm (0.1-0.6); Segmented Neutrophils 48 %; Total Cells Counted 100 (0-100)
[2021-10-06 08:08] LABS: Absolute Neutrophil 4.3 10^3/cmm (1.4-6.5); Platelet Estimate Normal (Normal)
[2021-10-06 08:10] LABS: Anisocytosis 1+; Macrocytosis 1+
[2021-10-06] MEDS: sodium chloride 0.9% 1,000 ML 999 ML IV (08:11)
[2021-10-06] MEDS: pantoprazole 40 mg SDV IVP (08:12)
[2021-10-06] MEDS: venlafaxine 75 mg Tablet PO (08:12)
[2021-10-06] MEDS: zonisamide 100 MG Capsule 200 MG PO (08:12)
[2021-10-06] MEDS: valproic acid 250 mg/5 mL UDC 500 MG PO (08:12)
[2021-10-06] MEDS: baclofen 10 mg Tablet PO (08:12)
--- NOTE | 2021-10-06 10:31 | PC.SOCIAL ---
IMM Update Pg. 2 of IMM updated and reviewed with patients guardian, Sindi Cervantes, over the phone.
--- NOTE | 2021-10-06 12:00 | PM.DCS ---
Discharge Providers Date of Admission: 09/29/21 09:28 Date of Discharge: October 06, 2021 Attending Provider at Admission: Kalpana Sultana MD Attending Provider at Discharge: Mali Mcneill MD Primary Care Provider: Michael Stokes MD Diagnoses at Discharge Discharge Diagnosis (1) Pneumonia: Status: Resolved (2) Hypoalbuminemia: Status: Acute (3) Malnourished: Status: Acute (4) Aspiration pneumonia: Status: Acute (5) Hypernatremia: Status: Resolved (6) S/P percutaneous endoscopic gastrostomy (PEG) tube placement: Status: Acute (7) History of seizure disorder: Status: Acute (8) Hypothyroidism, unspecified: Status: Acute (9) Cerebral palsy: Status: Acute (10) Severe protein-calorie malnutrition: Status: Acute Reason for Visit Reason for Visit: N/V/ LOW O2 SATS/ HTN Hospital Course Hospital Course Adilene Cordova is a 41 year old female who was recently discharged on 09/20 after management of sepsis related to UTI, (history of cerebral palsy, has a legal guardian, extensive extremity contractures, dysphagia status post PEG tube placement, )she was discharged on p.o. Levaquin, today she came back from [facility]. Chief complaint of possible aspiration. I called [facility] to get the report. Nurse was able to tell me that in last few days there was no fever, she does eat grilled cheese sandwich via her mouth otherwise she gets Isosource at 55 mL/h, 250 mL water flushes every 4 hours and 150 mL water flushes with the medication, today when nurse flushed her after giving medications she started spitting fluid and then she sounded congested, they were able to noticed rattling sound. Because of concern for aspiration pneumonia she was sent to the hospital for further evaluation. In the ER x-ray clearly shows right middle lobe pneumonia consistent with aspiration pneumonia, gallbladder wall thickening however no signs of acute cholecystitis, she is afebrile, no severe leukocytosis, I will keep her n.p.o. start Zosyn, start D5 for hypernatremia, will give her albumin for hypotension, check sodium level later today She is requiring oxygen which is new currently on 4 L nasal cannula Course: Patient was admitted for hypernatremia. It was corrected with D5. She also had recurrant aspiration pneumonia for which she received IV abx. She was switched to augmentin at discharge. She also had buttock rash due to her soiling. Zinc oxide cream mixed with vaseline was recommended at discharge. She was to follow up with PCP. Aspiration precautions recommended. Patient also had severe protein calorie malnutrition. Physical Exam Narrative: EXAM NARRATIVE: Patient was boosted up in her bed. Awake alert today Saturating well on room air DuoDERM with zinc oxide around the PEG tube insertion site PEG tube insertion site looks dry today She appeared comfortable. Breathing without respiratory distress on room air Extremity contractures Gum hyperplasia noted Erythematous rash present on buttock area?zinc oxide present Discharge Data Data Completed and Pending: Completed Studies During Hospitalization Category Date Time Status CT abdomen pelvis w con* [id number] Stat Cat Scan 09/29/21 08:10 Completed XR chest 1V jah ble [id number] Stat Exams 09/29/21 07:53 Completed XR chest 1V jah ble [id number] Urgent Exams 10/04/21 11:13 Completed US gall bladder 7 [id number] Urgent Ultrasound 09/29/21 09:05 Completed Pending at discharge Category Date Time Status Sputum Culture an d Gram Stain [facility] ne Lab 09/29/21 11:57 Uncollected Labs from last 24 hours 10/06/21 10/06/21 02:15 02:15 WBC 8.8 RBC 3.10 L Hgb 10.3 L Hct 31.9 L MCV 102.9 H MCH 33.2 MCHC 32.3 RDW 16.8 H Plt Count 302 MPV 10.6 H Lymph % (Auto) Not Reportable [place] % (Auto) Not Reportable Lymph # (Auto) Not Reportable [place] # (Auto) Not Reportable Total Counted 100 Atypical Lymphs % 0.0 Absolute Neutrophi ls 4.3 Segmented Neutroph ils 48 Abs Segm Neuts (Ma n) 4.2 Band Neutrophils 1.0 Abs Band Neuts (Ma n) 0.1 Absolute Lymphocyt es 2.4 Lymphocytes (Manua l) 27 Monocytes (Manual) 8.0 Absolute Monocytes 0.7 H Eosinophils (Manua l) 5 Absolute Eosinophi ls 0.4 Basophils (Manual) 0.0 Absolute Basophils 0.0 Metamyelocytes 3.0 Myelocytes 8.0 Platelet Estimate Normal Anisocytosis 1+ H Macrocytosis 1+ H Sodium 133 L Potassium 4.9 Chloride 99 Carbon Dioxide 22 Anion Gap 16.9 BUN 17 Creatinine 0.5 GFR Calculation 136.6 H Glucose 82 Calculated Osmolal ity 277 L Calcium 8.9 Magnesium 1.8 Vitals: Last Vital Signs Temp 98.1 F 10/06/21 11:57 Pulse 83 10/06/21 11:57 Resp 16 10/06/21 11:57 BP 91/58 10/06/21 11:57 Pulse Ox 95 10/06/21 11:57 Discharge Plan Discharge Patient Disposition: Xfer SNF Condition: Stable Prescriptions: New Protonix [address] for susp in packet 40 mg PO DAILY 28 Days Qty: 30 RF: 0 Continued zonisamide [Zonegran] 100 mg capsule 200 mg PO DAILY@08 RF: 0 Eldertonic 0.5-0.6-7-0.7 mg elixir 30 ml PO DAILY@08 RF: 0 gabapentin 300 mg capsule 300 mg PO BID@, RF: 0 baclofen 10 mg tablet 10 mg PO BID@, RF: 0 venlafaxine 75 mg tablet 75 mg PO DAILY@08 RF: 0 desmopressin 0.2 mg tablet 0.2 mg PO BID@, RF: 0 ondansetron HCl 4 mg tablet 4 mg PO QID PRN (Reason: Nausea And Vomiting) RF: 0 magnesium hydroxide [Milk of Magnesia] 400 mg/5 mL suspension 30 ml PO DAILY PRN (Reason: Constipation) RF: 0 bisacodyl [Dulcolax (bisacodyl)] 10 mg suppository 10 mg [place] DAILY PRN (Reason: Constipation) RF: 0 levetiracetam 100 mg/mL solution 1,000 mg PO BID@,20 RF: 0 Tylenol 650mg 20 ml PO QID PRN (Reason: pain/fever) RF: 0 Fleet Enema 19-7 gram/118 mL Enema 118 ml NV DAILY PRN (Reason: Constipation) RF: 0 levothyroxine 25 mcg Tablet 25 mcg feeding tube DAILY@0500 RF: 0 celecoxib [Celebrex] 200 mg Capsule 200 mg PO DAILY@08 RF: 0 valproic acid (as sodium salt) 250 mg/5 mL Solution 500 mg PO TID@08,,20 RF: 0 Tylenol 325 mg Tablet 650 mg PO BID@08,20 RF: 0 lactose-reduced food with fibr Liquid See Rx Instructions .ROUTE .COMPLEX RF: 0 camphor-menthol 0.2-3.5 % Gel See Rx Instructions .ROUTE .COMPLEX RF: 0 Discontinued levofloxacin 750 mg tablet 750 mg feeding tube Q24H 14 Days Qty: 14 RF: 0 No Action fluconazole 40 mg/mL suspension for reconstitution 150 mg PO Q3D Qty: 35 RF: 0 Discharge Orders: Discharge Order (Routine); Ordered 10/06/21 Ordered By: Mali Mcneill Other Ambulatory Orders: Basic Metabolic Panel (Routine) Timeframe: 1 Week Facility: [facility] - Location: Lab - Main Lab Ordered By: Mali Mcneill Referrals: Michael Stokes MD [Primary Care Provider] - 1 week Discharge Diet: Usual diet Discharge Activity: Bedrest Patient Instructions: Opioid Safety Discharge Attestations Time Spent in Discharge Care*: less than 30 min Quality Metrics Clinical Quality Measures During this hospital stay, did patient experience: None Coding Level of Care Code Acute Chg FW DC note Diagnoses Pneumonia J18.9 Hypoalbuminemia E88.09 Malnourished E46 Aspiration pneumonia J69.0 Hypernatremia E87.0 S/P percutaneous endoscopic gastrostomy (PEG) tube placement Z93.1 History of seizure disorder Z86.69 Hypothyroidism, unspecified E03.9 Cerebral palsy G80.9 Severe protein-calorie malnutrition E43
--- NOTE | 2021-10-06 14:11 | PC.CHAP ---
Pastoral Care Encounter/Spiritual Assessment Type of Contact [] Declined conventions assistant visit [] Patient/Family/Request visit [] Outpatient visit [] Follow-up visit [] Physician referral [] Code/Alert [xx] Routine visit [] Staff referral [] Actively dying [] Patient sleeping [] Family support [] [] Out of room [] Palliative care [] [] Receiving care in room [] Pre-surgical visit [] Trauma [] Long length of stay [] ICU visit [] Other: Relational/Emotional Strength [] Patient feels connected with others/family/visitors/staff [] Distress [] Loneliness/isolation [] Abandonment Spirituality of Patient [] Person of [place]se [] Attends Scientologist of their [place] [xx] Believes in Prayer [] Reads Bible or Temple materials [] There are Spiritual issues to be addressed Heavy Equipment Sales Associate Interventions [xx] Prayer [] Active listening [xx] Non-anxious presence [] Spiritual/emotional support [] Crisis/trauma care [] Spiritual counseling [] Bereavement support [] Provided bereavement packet [] Provided Bible/devotional materials [] Provided toy/stuffed animal, coloring book to patient or family member [] Provided Communion [] Anointing/[place] [] Salvation [xx] Completed spiritual assessment [] Other: Impact on Illness or Injury [] Angry [] Fearful [] Anxious [] Often cries [] Exhaustion [] Unable to work [] Unable to attend yarsanism [] Unable to walk/stand [] Unable to read [] Unable to drive [] Unable to eat/drink [] Unable to sleep [] Unable to be with family [] Patient intubated [] Other: Summary Patient has mental disability which limited our conversation as she is mostly nonvocal. She did allow me to pray for her. Time spent with patient 2 minutes
--- NOTE | 2021-10-06 14:18 | PC.NURSE ---
Report called to Larry at [facility].
== END 2021-10-06 16:00 | disposition skilled nursing facility (03) | DRG 177 ==
LOC: ER 08:12 → ICU 10:38 → MEDSURG 09-30 16:36
PROVIDERS: Admitting Provider Internal Medicine; Emergency Provider Family Medicine; PCP Internal Medicine; Visit Provider Internal Medicine
DX: J69.0 Pneumonitis due to inhalation of food and vomit (principal); E43 Unspecified severe protein-calorie malnutrition; E87.0 Hyperosmolality and hypernatremia; Z68.1 Body mass index [BMI] 19.9 or less, adult; I95.89 Other hypotension; G80.8 Other cerebral palsy; Z74.01 Bed confinement status; Z93.1 Gastrostomy status; Z87.01 Personal history of pneumonia (recurrent); E03.9 Hypothyroidism, unspecified; Z87.440 Personal history of urinary (tract) infections; Z66 Do not resuscitate; L53.9 Erythematous condition, unspecified
CPT/HCPCS: 36415; 36416; 36600; 71045; 74177; 76705; 80048; 80051; 80053; 81003; 82330; 82550; 82805; 82962; 83605; 83735; 84145; 84295; 85007; 85025; 86140; 87040; 87635; 92526; 92610; 93005; 94640; 96365; 96367; 99285; 99291; C9113; J2405; J2543; J3370; J7030; J7050; J7799; P9047; Q9967

== ENCOUNTER → 2021-10-25 09:47 | Day surgery (SDC) | payer MEDICARE, MEDICAID, SELFPAY ==
[2021-10-25 10:10] VITALS: PULSE 52; RESP 20; TEMP 35.9; O2SAT 94
--- NOTE | 2021-10-25 11:49 | P.PCN_ITS ---
Procedure/Consent Procedure Narrative: Preop diagnosis: Nonfunctioning G-tube, replaced with a 16 Indonesian Ceron catheter Postoperative diagnosis: Same Procedure: Exchange to 18 Indonesian G-tube Surgeon: Michael Anesthesia: None After consent was obtained from patient's power of document review attorney, the balloon of the Ceron catheter was deflated and the catheter removed without difficulty. An 18 Indonesian gastrostomy tube was introduced and balloon insufflated with 7 cc of saline. Dressings were applied. Patient tolerated procedure well.
== END ==
PROVIDERS: PCP Internal Medicine; Visit Provider Surgery
PROC: 0DP64UZ Removal of Feeding Device from Stomach, Percutaneous Endoscopic Approach (ICD-10-PCS; CPT 43762; principal; 2021-10-25 11:30)
DX: K94.23 Gastrostomy malfunction (principal)
CPT/HCPCS: 43762

== ENCOUNTER 2021-12-06 10:13 | Day surgery (SDC) | payer MEDICARE, MEDICAID, SELFPAY ==
[2021-12-06 10:24] VITALS: BP 121/78; PULSE 76; RESP 18; TEMP 36.2; O2SAT 97
--- NOTE | 2021-12-06 11:12 | P.PCN_ITS ---
Procedure/Consent Time out: Time Out Performed: Yes Consent: Consent for Procedure: Consent obtained from patient Procedure Narrative: Preoperative diagnosis: Nonfunctioning Keven button Postop diagnosis: Same Procedure: Exchange of 20 Citizen Of [place] 3.5 cm Keven button Surgeon: Michael Anesthesia: Local Description of the procedure: The patient's Keven button was broken and could no longer be used. The balloon on the Keven button was deflated and removed without difficulty and a 20 [place] 3.5 cm Keven button was introduced and balloon inflated with 3 cc of saline. Sterile dressings were applied. Patient tolerated the procedure well. Acute Procedures Epistaxis Control: Time out performed: Yes
== END 2021-12-06 10:41 | disposition home or self-care (01) ==
PROVIDERS: PCP Internal Medicine; Visit Provider Surgery
PROC: 0DP64UZ Removal of Feeding Device from Stomach, Percutaneous Endoscopic Approach (ICD-10-PCS; CPT 43762; principal; 2021-12-06 10:00)
DX: K94.23 Gastrostomy malfunction (principal)
CPT/HCPCS: 43762

== ENCOUNTER 2021-12-16 08:36 | Emergency (ER) | payer MEDICARE, MEDICAID, SELFPAY ==
[2021-12-16 08:39] VITALS: BP 120/86; PULSE 72; RESP 16; TEMP 35.9; O2SAT 96; BMI 23.9
[2021-12-16 08:50] VITALS: BP 120/86; PULSE 66; RESP 16; TEMP 37; O2SAT 98
--- NOTE | 2021-12-16 08:51 | XRR_ITS ---
PROCEDURE INFORMATION: Exam: XR Abdomen Exam date and time: 12/16/2021 8:05 AM Age: 41 years old Clinical indication: Abdominal pain; Generalized; Prior surgery; Surgery date: 6+ months; Surgery type: Peg tube; Additional info: Peg tube, abd pain, HX of recent pneumonia TECHNIQUE: Imaging protocol: XR of the abdomen. Views: 2 Views. Upright and supine views. COMPARISON: CR XR chest 1V portable [id number] 10/04/2021 11:25 AM FINDINGS: Tubes, catheters and devices: A gastrostomy tube is in place extending from the right side into the stomach. Gastrointestinal tract: Normal. No bowel dilation. Intraperitoneal space: Normal. No free air. Bones/joints: Unremarkable for age. XR/XR acute abdomen series [id number] IMPRESSION: 1. No acute findings. 2. Right side gastrostomy tube in position as noted
--- NOTE | 2021-12-16 08:54 | ED_ITS ---
HPI - Abdominal Pain General: Chief Complaint: Abdominal Pain Stated Complaint: ABD PAIN Time Seen by Provider: 12/16/21 08:40 History of Present Illness: Patient arrives via ambulance from long term with complaint abdominal pain that started this morning. Patient is a cerebral palsy patient who has a PEG tube in. Recently had PEG tube replaced. As far as no tube is still flushing well. Patient's not had any fevers not had a cough no shortness of breath. Patient is difficult to communicate due to cerebral palsy. Associated Symptoms: Denies chills, fever(s) and vomiting Review of Systems Narrative: Patient has communication problems due to cerebral palsy. Const: Denies: fever(s) or chills Resp: Denies: dyspnea GI: Reports: abdominal pain; Denies: vomiting PFSH ED PFSH: Medical History Cerebral palsy History of seizure disorder HTN (hypertension) Hypothyroidism, unspecified Surgical History S/P percutaneous endoscopic gastrostomy (PEG) tube placement Family History Other Family history non-contributory Social History Smoking and tobacco status: unknown if ever smoked Alcohol intake: unknown Housing: [facility] Female Reproductive History: Para: 0 Spontaneous abortions: No Physical Exam Narrative: EXAM NARRATIVE: Patient communicates that she is thirsty. And that her abdomen hurts when palpated. She seems answer no when she says she hurts anywhere else or has any other problems. Const: COMMON NORMALS: no acute distress and healthy appearing (Does have severe limb contractures which consistent with history) HENMT: COMMON NORMALS: normocephalic, Normal nasal mucous membranes and turbinates present and moist oral mucous membranes HEAD & SCALP: normocephalic NOSE: Normal nasal mucous membranes and turbinates present Resp: COMMON NORMALS: normal respiratory effort, No retractions and No use of accessory muscles Cardio: COMMON NORMALS: regular rate and regular rhythm RATE: regular rate RHYTHM: regular rhythm GI: COMMON NORMALS: No hepatosplenomegaly present AUSCULTATION: Yes Hypoactive bowel sounds present PALPATION: Yes Tenderness to palpation present (GI) Details: LUQ and Yes No hepatosplenomegaly present Extremity: OTHER: Limbs contracted Skin: COMMON NORMALS: no rashes or lesions noted GENERAL SKIN EXAM: no rashes or lesions noted Course Vital Signs: Vital signs: Vital Signs Temperature 98.6 F 12/16/21 08:50 Pulse Rate 71 12/16/21 10:12 Respiratory Rate 16 12/16/21 10:12 Blood Pressure 120/86 12/16/21 10:12 Pulse Oximetry 96 12/16/21 10:12 MDM - Abdominal Pain Medical Decision Making Patient presents here from long term with complaint abdominal pain that started this morning. Communicate with patient is somewhat difficult but patient says it hurts in the left upper quadrant when I push on that. PEG tube is working fine were able to flush that gave her Tylenol which took care of her pain patient is feeling fine now KUB chest x-ray did not show any significant change from previous sodium was normal and with her having a history of hyponatremia in the past. Patient has no other complaints problems no other significant findings found patient discharged back to long term and to be given medications as on her MAR as needed for pain. Lab Data : 12/16/21 08:52 Labs/Radiology: Laboratory Results Sodium 135 mmol/L (136-145) L 12/16/21 08:52 Sodium Cancelled 12/16/21 08:52 Potassium Cancelled 12/16/21 08:52 Chloride Cancelled 12/16/21 08:52 Carbon Dioxide Cancelled 12/16/21 08:52 Anion Gap Cancelled 12/16/21 08:52 BUN Cancelled 12/16/21 08:52 Creatinine Cancelled 12/16/21 08:52 GFR Calculation Cancelled 12/16/21 08:52 Glucose Cancelled 12/16/21 08:52 Calculated Osmolality Cancelled 12/16/21 08:52 Calcium Cancelled 12/16/21 08:52 Discharge Plan Discharge Patient Disposition: Home Clinical Impression: Abdominal pain, Cerebral palsy Condition: Stable Prescriptions: No Action zonisamide [Zonegran] 100 mg capsule 200 mg PO DAILY@08 0RF Eldertonic 0.5-0.6-7-0.7 mg elixir 30 ml PO DAILY@08 0RF gabapentin 300 mg capsule 300 mg PO BID@08,20 0RF baclofen 10 mg tablet 10 mg PO BID@08,20 0RF venlafaxine 75 mg tablet 75 mg PO DAILY@08 0RF desmopressin 0.2 mg tablet 0.2 mg PO BID@08,20 0RF ondansetron HCl 4 mg tablet 4 mg PO QID PRN (Reason: Nausea And Vomiting) 0RF magnesium hydroxide [Milk of Magnesia] 400 mg/5 mL suspension 30 ml PO DAILY PRN (Reason: Constipation) 0RF bisacodyl [Dulcolax (bisacodyl)] 10 mg suppository 10 mg [place] DAILY PRN (Reason: Constipation) 0RF fluconazole 40 mg/mL suspension for reconstitution 150 mg PO Q3D Qty: 35 0RF Rx Instructions: 1 dose. Repeat in 3 days then stop. (DME) wheelchair See Rx Instructions .Route .MEDSUPPLY Qty: 1 0RF Rx Instructions: As directed levetiracetam 100 mg/mL solution 1,000 mg PO BID@08,20 0RF Tylenol 650mg 20 ml PO QID PRN (Reason: pain/fever) 0RF Fleet Enema 19-7 gram/118 mL Enema 118 ml [place] DAILY PRN (Reason: Constipation) 0RF levothyroxine 25 mcg Tablet 25 mcg feeding tube DAILY@0500 0RF celecoxib [Celebrex] 200 mg Capsule 200 mg PO DAILY@08 0RF valproic acid (as sodium salt) 250 mg/5 mL Solution 500 mg PO TID@08,14,20 0RF acetaminophen [Tylenol] 325 mg Tablet 650 mg PO BID@08,20 0RF lactose-reduced food with fibr Liquid See Rx Instructions .ROUTE .COMPLEX 0RF Rx Instructions: 1.5 continuous at 50ml/hr for 18 hours/day 14:00, give 120ml bolus after mealsif <50% consumed, flush w/100ml before and after each bolus give additional 200ml h2o flush tid-abnormal wt loss camphor-menthol 0.2-3.5 % Gel 1 applic topical PRN PRN (Reason: Pain) 0RF Rx Instructions: apply topically to shoulders or knees prn pain Discharge Orders: Discharge ED (Routine); Ordered 12/16/21 Ordered By: Vitaly Wyatt Referrals: Michael Stokes MD [Primary Care Provider] - Discharge Diet: Usual diet Discharge Activity: Resume usual activity Patient Instructions: Abdominal Pain (ED) Activity Restrictions/Additional Instructions: Can give medication as scheduled on the MAR for abdominal pain. Coding Level of Care Code ED Sensory Scientist for Irene Fwevan Exam Detailed
[2021-12-16] MEDS: acetaminophen 650 mg/20.3 mL UDC PO (09:56)
[2021-12-16 10:12] VITALS: BP 120/86; PULSE 71; RESP 16; O2SAT 96
[2021-12-16 10:14] LABS: Sodium 135 mmol/L (136-145)
[2021-12-16 11:51] VITALS: BP 117/80; PULSE 71; RESP 16; O2SAT 96
== END 2021-12-16 11:53 | disposition home or self-care (01) ==
PROVIDERS: Emergency Provider Nurse Practitioner Family; PCP Internal Medicine
DX: R10.9 Unspecified abdominal pain (principal); G80.9 Cerebral palsy, unspecified; I10 Essential (primary) hypertension
CPT/HCPCS: 74022; 84295; 99283

== ENCOUNTER 2021-12-29 10:56 | Day surgery (SDC) | payer MEDICARE, MEDICAID, SELFPAY ==
[2021-12-29 11:15] VITALS: BP 118/86; PULSE 95; RESP 20; TEMP 36.8; O2SAT 96; BMI 24.4
--- NOTE | 2021-12-29 11:42 | PM.ACPR ---
Procedure/Consent Time out: Time Out Performed: Yes Consent: Consent for Procedure: Consent obtained from other (indicate) (POA) Procedure Narrative: Preoperative diagn osis: Nonfunctioni ng gastrostomy tub e Postop diagnosis : Same Procedure: Exchange to 22 Bhavik nch gastrostomy tu be Surgeon: Michael Anesthesia: None Description of the procedure: The pa tient had a 22 Bhavik nch Ceron catheter in place. The ba chairsmaon on the Ceron catheter button w as deflated and re moved without diff iculty and a 22 Fr ench gastrostomy t ube was introduced and balloon infla suki with 7 cc of s dimas.? Sterile dr gordillo were appli ed.? Patient jacoby ated the procedure well. Acute Procedures Epistaxis Control: Time out performed: Yes
== END 2021-12-29 11:30 | disposition home or self-care (01) ==
PROVIDERS: PCP Internal Medicine; Visit Provider Surgery
PROC: 0DP64UZ Removal of Feeding Device from Stomach, Percutaneous Endoscopic Approach (ICD-10-PCS; CPT 43762; principal; 2021-12-29 12:00)
DX: K94.23 Gastrostomy malfunction (principal)
CPT/HCPCS: 43762

== ENCOUNTER → 2022-04-20 08:04 | Day surgery (SDC) | payer MEDICARE, MEDICAID, SELFPAY ==
[2022-04-20 08:20] VITALS: BP 100/70; PULSE 66; RESP 20; TEMP 36.1; O2SAT 98
--- NOTE | 2022-04-20 08:52 | PM.ACPR ---
Procedure/Consent Time out: Time Out Performed: Yes Consent: Consent for Procedure: Consent obtained from other (indicate) Procedure Narrative: Preoperative diagnosis: Patient pulled out gastrostomy tube Postop diagnosis: 16 Japanese [address] catheter in place Procedure: Exchange to 22 Japanese gastrostomy tube Surgeon: Michael Anesthesia: None Description of the procedure: The patient's existing 16 Japanese Ceron catheter was removed without difficulty after 30 cc of saline was removed from the balloon. A 22 Japanese gastrostomy tube was introduced and balloon was inflated with 7 cc of saline. Patient tolerated the procedure well. Sterile dressings were applied. Acute Procedures Epistaxis Control: Time out performed: Yes
== END ==
PROVIDERS: PCP Internal Medicine; Visit Provider Surgery
PROC: 0DP64UZ Removal of Feeding Device from Stomach, Percutaneous Endoscopic Approach (ICD-10-PCS; CPT 43762; principal; 2022-04-20 08:30)
DX: Z43.1 Encounter for attention to gastrostomy (principal)
CPT/HCPCS: 43762

== ENCOUNTER 2022-06-30 20:24 | Emergency (ER) | payer MEDICARE, MEDICAID, SELFPAY ==
[2022-06-30 20:43] VITALS: BP 105/72; PULSE 73; RESP 16; O2SAT 95
--- NOTE | 2022-06-30 20:59 | ED_ITS ---
HPI - General Adult General: Chief complaint: General Medical Stated complaint: Dislodged feeding tube Time Seen by Provider: 06/30/22 20:25 History of Present Illness: Patient comes in from the [place] [facility] with a dislodged G-tube. The patient has a history of cerebral palsy. Review of the notes shows that she recently had a 22 Albanian G-tube placed. Will obtain a new when here and attempt to replace the tube. Review of Systems General: Reports: Other (Review of systems limited due to the patient's mental status) PFS ED PFSH: Medical History Cerebral palsy History of seizure disorder HTN (hypertension) Hypothyroidism, unspecified Surgical History S/P percutaneous endoscopic gastrostomy (PEG) tube placement Family History Other Family history non-contributory Female Reproductive History: Para: 0 Spontaneous abortions: No Physical Exam Const: COMMON NORMALS: no acute distress OTHER: Patient is awake, does respond minimally to verbal stimulus Resp: COMMON NORMALS: normal respiratory effort and No retractions Cardio: COMMON NORMALS: regular rate and regular rhythm RATE: regular rate RHYTHM: regular rhythm GI: COMMON NORMALS: Soft to palpation and non-tender PALPATION: Yes Soft to palpation OTHER: G-tube dislodged Extremity: OTHER: Chronic contractures of all 4 extremities Course Vital Signs: Vital signs: Vital Signs Pulse Rate 73 06/30/22 20:43 Respiratory Rate 16 06/30/22 20:43 Blood Pressure 105/72 06/30/22 20:43 Pulse Oximetry 95 06/30/22 20:43 Oxygen Delivery Me thod 06/30/22 20:43 [facility] - General Adult Medical Decision Making Patient comes in from the [place] [facility] with a dislodged G-tube. The patient has a history of cerebral palsy. Review of the notes shows that she recently had a 22 Albanian G-tube placed. Will obtain a new when here and attempt to replace the tube. We were able to replace the G-tube without complication. After inflating the bulb I was able to aspirate gastric contents. Will discharge at this time with precautions to return for worsening or changing symptoms. Discharge Plan Discharge Patient Disposition: Home Clinical Impression: Gastrojejunostomy tube dislodgement Condition: Stable Prescriptions: No Action zonisamide [Zonegran] 100 mg capsule 200 mg PO DAILY@08 Eldertonic 0.5-0.6-7-0.7 mg elixir 30 ml PO DAILY@08 gabapentin 300 mg capsule 300 mg PO BID@08,20 baclofen 10 mg tablet 10 mg PO BID@08,20 venlafaxine 75 mg tablet 75 mg PO DAILY@08 desmopressin 0.2 mg tablet 0.2 mg PO BID@08,20 ondansetron HCl 4 mg tablet 4 mg PO QID PRN (Reason: Nausea And Vomiting) magnesium hydroxide [Milk of Magnesia] 400 mg/5 mL suspension 30 ml PO DAILY PRN (Reason: Constipation) bisacodyl [Dulcolax (bisacodyl)] 10 mg suppository 10 mg [place] DAILY PRN (Reason: Constipation) (DME) wheelchair See Rx Instructions .Route .MEDSUPPLY Qty: 1 0RF Rx Instructions: As directed levetiracetam 100 mg/mL solution 1,000 mg PO BID@08,20 Fleet Enema 19-7 gram/118 mL Enema 118 ml FL DAILY PRN (Reason: Constipation) levothyroxine 25 mcg Tablet 25 mcg feeding tube DAILY@0500 celecoxib [Celebrex] 200 mg Capsule 200 mg PO DAILY@08 valproic acid (as sodium salt) 250 mg/5 mL Solution 500 mg PO TID@08,14,20 acetaminophen [Tylenol] 325 mg Tablet 650 mg PO BID@08,20 camphor-menthol 0.2-3.5 % Gel 1 applic topical PRN PRN (Reason: Pain) Rx Instructions: apply topically to shoulders or knees prn pain pantoprazole [Protonix] [address] For Susp In Packet 40 mg PO DAILY Discharge Orders: Discharge ED (Routine); Ordered 06/30/22 Ordered By: Yassine De Oliveira Referrals: Michael Stokes MD [Primary Care Provider] - Coding Level of Care Code ED Vocational Director for Chg Fwd Exam Expanded Problem Focused
[2022-06-30] MEDS: sodium chloride 0.9% 1,000 ML 999 ML IV (21:21)
[2022-06-30 22:45] VITALS: BP 94/67; PULSE 75; RESP 12; O2SAT 96
[2022-07-01] VITALS: BP 84/59; PULSE 80; RESP 14; TEMP 35.5; O2SAT 91
[2022-07-01 00:24] VITALS: BP 95/59; RESP 14; TEMP 35.5; O2SAT 96
== END 2022-07-01 00:30 | disposition home or self-care (01) ==
PROVIDERS: Emergency Provider Emergency Medicine; PCP Internal Medicine
DX: K94.29 Other complications of gastrostomy (principal); G80.9 Cerebral palsy, unspecified; I10 Essential (primary) hypertension
CPT/HCPCS: 96360; 99284; J7030

== ENCOUNTER 2022-12-13 22:27 | Emergency (ER) | payer MEDICARE, MEDICAID, SELFPAY ==
[2022-12-13 22:30] VITALS: BP 127/91; PULSE 76; RESP 20; TEMP 36.6; O2SAT 94; BMI 17.6
--- NOTE | 2022-12-13 22:32 | XRR_ITS ---
PROCEDURE INFORMATION: Exam: XR Abdomen Exam date and time: 12/13/2022 10:39 PM Age: 42 years old Clinical indication: Device placement; Gi device; Peg tube; Prior surgery; Patient HX: Check S/P peg placement. 25ml of gastro injected prior to exposure. ; Additional info: Peg tube/ gastrogaffin TECHNIQUE: Imaging protocol: Radiologic exam of the abdomen. Views: Frontal supine view of the abdomen. 1 View. Other contrast: 25 ml of gastrografin; COMPARISON: 1. CR XR acute abdomen series [id number] 12/16/2021 8:[address] abdomen pelvis w con* [id number] 09/29/2021 8:31 AM FINDINGS: Tubes, catheters and devices: There is a percutaneous feeding tube in the distal body of the descending duodenum, stable in position compared with 09/29/2021. The tube was injected with contrast. Contrast is seen in the duodenum and proximal jejunum. No extravasation of contrast. Gastrointestinal tract: Increased fecal content in the colon. Nonobstructive bowel gas pattern. Intraperitoneal space: No free intraperitoneal air. Organs: No organomegaly. Bones/joints: Bones are diffusely osteopenic. XR/XR KUB [id number] IMPRESSION: 1. Nonobstructed bowel gas pattern. 2. Percutaneous feeding tube in the descending duodenum. 3. Increased fecal content in the colon.
--- NOTE | 2022-12-13 22:33 | W.ED.GENADLT ---
HPI - General Adult General: Chief complaint: General Medical Stated complaint: PEG TUBE DISPLACED Time Seen by Provider: 12/13/22 22:29 Source: EMS Mode of arrival: EMS Limitations: altered mental status History of Present Illness: 42-year-old female history of cerebral palsy lives at a [facility] and is bedbound nonverbal [facility] is concerned that the PEG tube was not in its right place PEG tube here is in place her abdomen they state they felt like it was sticking out further than normal they have not attempted to flush it or anything else. Review of Systems General: Reports: ROS unobtainable due to mental status PFSH ED PFSH: Medical History Cerebral palsy History of seizure disorder HTN (hypertension) Hypothyroidism, unspecified Surgical History S/P percutaneous endoscopic gastrostomy (PEG) tube placement Family History Other Family history non-contributory Social History (Updated 12/13/22 @ 22:33 by William Lockhart MD) Substance/Drug Use: never Female Reproductive History: Para: 0 Spontaneous abortions: No Physical Exam Const: COMMON NORMALS: no acute distress; negative for patient oriented x3 HENMT: COMMON NORMALS: atraumatic HEAD & SCALP: atraumatic Eye: COMMON NORMALS: conjunctivae normal CONJUNCTIVA: Yes conjunctivae normal Neck/C-Spine: COMMON NORMALS: supple Chest: COMMONS NORMALS: normal inspection of the chest Resp: COMMON NORMALS: normal respiratory effort GI: OTHER: PEG tube is currently in place I see no issues with that currently Extremity: COMMON NORMALS: normal to inspection Neuro: COMMON NORMALS: negative for patient oriented x3 Psych: COMMON NORMALS: cooperative Skin: COMMON NORMALS: no rashes or lesions noted GENERAL SKIN EXAM: no rashes or lesions noted Course Vital Signs: Vital signs: Vital Signs Temperature 98 F 12/13/22 22:30 Pulse Rate 76 12/13/22 22:30 Respiratory Rate 20 H 12/13/22 22:30 Blood Pressure 127/91 12/13/22 22:30 Pulse Oximetry 94 12/13/22 22:30 Oxygen Delivery Me thod 12/13/22 22:30 MDM - General Adult Medical Decision Making Patient presents here for concern of PEG tube displacement on exam its in normal place balloon is inflated x-ray shows PEG tube in place. Patient stable for discharge back to the [facility] Discharge Plan Discharge Patient Disposition: Home Clinical Impression: Feeding tube dysfunction Prescriptions: No Action zonisamide [Zonegran] 100 mg capsule 200 mg PO DAILY@08 Eldertonic 0.5-0.6-7-0.7 mg elixir 30 ml PO DAILY@08 gabapentin 300 mg capsule 300 mg PO BID@08,20 baclofen 10 mg tablet 10 mg PO BID@08,20 venlafaxine 75 mg tablet 75 mg PO DAILY@08 desmopressin 0.2 mg tablet 0.2 mg PO BID@08,20 ondansetron HCl 4 mg tablet 4 mg PO QID PRN (Reason: Nausea And Vomiting) magnesium hydroxide [Milk of Magnesia] 400 mg/5 mL suspension 30 ml PO DAILY PRN (Reason: Constipation) bisacodyl [Dulcolax (bisacodyl)] 10 mg suppository 10 mg NJ DAILY PRN (Reason: Constipation) (DME) wheelchair See Rx Instructions .Route .MEDSUPPLY Qty: 1 0RF Rx Instructions: As directed levetiracetam 100 mg/mL solution 1,000 mg PO BID@08,20 Fleet Enema 19-7 gram/118 mL Enema 118 ml NJ DAILY PRN (Reason: Constipation) levothyroxine 25 mcg Tablet 25 mcg feeding tube DAILY@0500 celecoxib [Celebrex] 200 mg Capsule 200 mg PO DAILY@08 valproic acid (as sodium salt) 250 mg/5 mL Solution 500 mg PO TID@08,14,20 acetaminophen [Tylenol] 325 mg Tablet 650 mg PO BID@08,20 camphor-menthol 0.2-3.5 % Gel 1 applic topical PRN PRN (Reason: Pain) Rx Instructions: apply topically to shoulders or knees prn pain pantoprazole [Protonix] [address] For Susp In Packet 40 mg PO DAILY Discharge Orders: Discharge ED (Routine); Ordered 12/13/22 Ordered By: William Lockhart Referrals: Michael Stokes MD [Primary Care Provider] - Discharge Diet: Advance as tolerated Discharge Activity: Resume usual activity Patient Instructions: How to Use and Care for Your PEG Tube (ED) Coding Level of Care Code ED [employer] Developer for Irene Davis
[2022-12-13 22:36] VITALS: PULSE 77; RESP 18; O2SAT 91
[2022-12-13] MEDS: diatrizoate meglumine 120 mL Sol PO (22:54)
[2022-12-14 00:10] VITALS: PULSE 80; RESP 16; O2SAT 92
== END 2022-12-14 00:12 | disposition home or self-care (01) ==
LOC: ER 23:01
PROVIDERS: Emergency Provider Emergency Medicine; PCP Internal Medicine
DX: K94.29 Other complications of gastrostomy (principal); Y73.8 Miscellaneous gastroenterology and urology devices associated with adverse incidents, not elsewhere classified; G80.9 Cerebral palsy, unspecified; I10 Essential (primary) hypertension
CPT/HCPCS: 74018; 99283; Q9963